=== PATIENT | female | born 1955 | race African-American/Black ===

== ENCOUNTER 2018-04-17 01:23 | Emergency (ER) | payer SELFPAY ==
[2018-04-17] MEDS ORDERED: NORMAL SALINE 1000 ML 1,000 ML IV ONE (02:05)
[2018-04-17] MEDS ORDERED: ONDANSETRON HCL INJ/PF 4 MG/2 ML SDV IV ONE (02:05)
[2018-04-17] MEDS ORDERED: KETOROLAC TROMETHAMINE INJ/PF 30 MG/1 ML SDV IV ONE (02:05)
[2018-04-17] MEDS ORDERED: MORPHINE SULFATE 10 MG/ML INJ IV ONE (02:30)
[2018-04-17 02:38] LABS: ABSOLUTE EOSINOPHILS # (AUTO) 0.1 10^3/uL (0.0-0.6); ABSOLUTE LYMPHOCYTES (AUTO) 1.9 10^3/uL (0.5-4.7); ABSOLUTE MONOCYTES (AUTO) 0.4 10^3/uL (0.1-1.4); BASOPHILS % (AUTO) 0.5 % (0-2); EOSINOPHILS % (AUTO) 0.9 % (0-6); HEMATOCRIT 36.9 % (36.0-47.0); HEMOGLOBIN 12.6 g/dL (12.0-15.5); MEAN CORPUSCULAR HEMOGLOBIN 31.5 pg (27.0-33.4); MEAN CORPUSCULAR HGB CONC 34.2 g/dL (32.0-36.0); MEAN CORPUSCULAR VOLUME 92 fl (80-97); MONOCYTES % (AUTO) 4.7 % (3-13); PLATELET COUNT 242 10^3/uL (150-450); RED CELL DISTRIBUTION WIDTH 12.6 % (11.5-14.0); SEGMENTED NEUTROPHILS % (AUTO) 70.9 % (42-78); TOTAL CELLS COUNTED % (AUTO) 100 %; WHITE BLOOD COUNT 8.4 10^3/uL (4.0-10.5)
[2018-04-17 02:52] LABS: APPEARANCE,URINE CLEAR; BILIRUBIN,URINE NEGATIVE (NEGATIVE); COLOR,URINE STRAW; GLUCOSE, URINE NEGATIVE (NEGATIVE); KETONES,URINE NEGATIVE (NEGATIVE); LEUKOCYTE ESTERASE,URINE TRACE (NEGATIVE); NITRITE,URINE NEGATIVE (NEGATIVE); PROTEIN,URINE NEGATIVE (NEGATIVE); URINE SPECIFIC GRAVITY 1.009; UROBILINOGEN,URINE NEGATIVE mg/dL (<2.0)
[2018-04-17 02:56] LABS: ALANINE AMINOTRANSFERASE 31 U/L (9-52); ALBUMIN 3.9 g/dL (3.5-5.0); ALKALINE PHOSPHATASE 114 U/L (38-126); ANION GAP 8 (5-19); ASPARTATE AMINO TRANSFERASE 25 U/L (14-36); BILIRUBIN,DIRECT 0.2 mg/dL (0.0-0.4); BILIRUBIN,TOTAL 0.4 mg/dL (0.2-1.3); BLOOD UREA NITROGEN 16 mg/dL (7-20); CALCIUM 9.1 mg/dL (8.4-10.2); CARBON DIOXIDE 27 mmol/L (22-30); CHLORIDE 105 mmol/L (98-107); GLUCOSE 122 mg/dL (75-110); LIPASE 255.4 U/L (23-300); POTASSIUM 4.4 mmol/L (3.6-5.0); SODIUM 140.4 mmol/L (137-145); TOTAL PROTEIN 7.3 g/dL (6.3-8.2)
--- NOTE | 2018-04-17 04:16 | RADIOLOGY REPORT (SQ) ---
EXAM DESCRIPTION: CT ABDOMEN WITHOUT IV CONTRAST COMPLETED DATE/TME: 04/17/2018 02:58 CLINICAL HISTORY: 62 years Female, Left flank pain, hematuria Comparison: None. Technique: No contrast. Coronal and sagittal reformat. This exam was performed according to our departmental dose-optimization program, which includes automated exposure control, adjustment of the mA and/or kV according to patient size and/or use of iterative reconstruction technique.[facility]: Dose Right [facility]: CareDose [facility]: Dose Right [facility]: Teradose 4D [facility]: Ongo LIMITATIONS: None Findings: 0.3 cm left distal ureteral stone or phlebolith at the level of the acetabulum; no significant hydronephrosis or hydroureter. Cholecystectomy. Normal appendix. Indeterminate low-attenuation component of the left interpolar kidney may indicate a benign renal cyst; cannot exclude other neoplasm. Recommend multiphase contrast CT or MRI of the kidneys. L4-L5 vacuum disc desiccation. No ascites. No pneumoperitoneum. No bowel obstruction. Unenhanced lower thorax, abdominopelvic structures, and musculoskeleton appear otherwise grossly unremarkable. Impression: 1. Indeterminate low-attenuation component of the left interpolar kidney may indicate a benign renal cyst; cannot exclude other neoplasm. Recommend multiphase contrast CT or MRI of the kidneys. 2. Possible 0.3 cm left distal ureteral stone; no significant obstruction.
--- NOTE | 2018-04-17 05:14 | ER Document Report ---
ED General - General Chief Complaint: Flank Pain Stated Complaint: BACK PAIN Time Seen by Provider: 04/17/18 01:51 Mode of Arrival: Ambulatory Information source: Patient Notes: Patient is a 62-year-old female who presents with chief complaint of left flank pain. Patient reports this started just a few hours prior to arrival and had a sudden onset while she was trying to sleep. Patient reports the pain radiates from her left flank down into the left side of her pelvis/groin. Patient reports history of kidney stones states this feels similar. Patient reports mild nausea but denies any vomiting, diarrhea or fever. Patient unsure if she has blood in her urine. TRAVEL OUTSIDE OF THE [place] IN LAST 30 DAYS: No - Related Data Allergies/Adverse Reactions: No Known Allergies Allergy (Unverified 04/17/18 01:26) Past Medical History - General Information source: Patient - Social History Smoking Status: Never Smoker Chew tobacco use (# tins/day): No Frequency of alcohol use: None Drug Abuse: None Family History: Reviewed & Not Pertinent Patient has suicidal ideation: No Patient has homicidal ideation: No Renal/ Medical History: Denies: Hx Peritoneal Dialysis Physical Exam - Vital signs Vitals: Temp Pulse Resp BP Pulse Ox 97.9 F 70 22 H 158/63 H 100 04/17/18 01:28 04/17/18 01:28 04/17/18 01:28 04/17/18 01:28 04/17/18 01:28 Course - Re-evaluation Re-evalutation: CAT scan reveals possible 0.3 cm nonobstructing renal stone at the distal UVJ. No hydronephrosis or hydroureter is noted. Patient also has a left renal cyst, likely benign but cannot exclude neoplasm. This was discussed with the patient. Blood work is normal without leukocytosis or electrolyte derangements. Patient does have large blood in her urine but otherwise her urine is not infected. Patient was given IV fluids, antiemetics and analgesics and patient is reporting that she feels better. Patient did drive here so we will hold her for several hours while the pain medication has a chance to wear off out of her system. - Vital Signs Vital signs: Temp Pulse Resp BP Pulse Ox 97.7 F 62 14 146/59 H 96 04/17/18 04:40 04/17/18 04:40 04/17/18 04:40 04/17/18 04:40 04/17/18 04:40 - Laboratory Result Diagrams: 04/17/18 02:31 04/17/18 02:31 Laboratory results interpreted by me: 04/17/18 04/17/18 02:31 02:31 Glucose 122 H Urine Blood LARGE H Ur Leukocyte Esterase TRACE H Discharge - Discharge Clinical Impression: Renal cyst, Kidney stone on left side Condition: Stable Disposition: HOME, SELF-CARE Additional Instructions: KIDNEY STONE: You are passing or have passed a kidney stone. These stones are usually due to increased calcium or uric acid concentrations in your urine. Stones within the kidney itself are not painful. The pain occurs as the stone leaves the kidney to pass down the long tube, called the ureter, leading to the bladder. If the stone is small, it will usually pass by itself. Most patients can pass the stone at home. You will usually receive medications for pain, nausea or vomiting, and sometimes a medication to assist in passing the kidney stone. However, if the pain is very severe or if vomiting prevents you from taking oral pain medications, you may need to return for further treatment. Drink three or four quarts of fluids per day. You will be given pain medication (if needed) and urine strainers. Strain all your urine to see if the stone passes. If your doctor has asked you to bring the stone in for analysis, return with the stone once it has passed. Return if pain or vomiting become severe, if you develop a high fever, if you are unable to pass your urine, or if other unusual symptoms occur. TORADOL INJECTION: You have been given an injection of ketorolac tromethamine (Toradol). This is an excellent, safe drug for pain control. It also has potent antiinflammatory action. You should have significant pain relief within about one hour. Toradol is not addicting and is non-sedating. It does not interfere with driving or work. Call or return if you develop itching, hives, shortness of breath, or rash. PAIN MEDICATION INJECTION: You have received an injection of a pain medication. You should experience significant pain relief within 45 minutes. This drug is a narcotic - - it will impair your judgement, slow your reaction time and make you sleepy ( as well as relieve your pain). Narcotics also can cause nausea. You should not drive, work with machinery, or perform any task requiring mental alertness until all effects of the medication are gone -- six to eight hours. Do not take any alcohol, or sedatives, and do not take any other medication without checking with your physician. ANTINAUSEA MEDICATION: You have been given a medication to suppress nausea and vomiting. This type of medication can be given as a shot, pill, or suppository. It will usually last for many hours. Pills and shots usually last six to eight hours, suppositories last about 12 hours. For the typical illness, only one or two doses of the medication may be necessary. Mild lightheadedness may occur. This type of medicine can cause drowsiness. Do not drive or operate dangerous machinery while under its influence. Do not mix with alcohol. See your doctor at once if you have muscle spasms or tightness, or uncontrollable motions (particularly of the neck, mouth, or jaw). Persistent vomiting or severe lightheadedness should also be evaluated by the physician. ORAL NARCOTIC MEDICATION: You have been given a prescription for pain control. This medication is a narcotic. It's best taken with food, as nausea can result if taken on an empty stomach. Don't operate machinery or drive within six hours of taking this medication. Do not combine this medicine with alcohol, or with any medication which can cause sedation (such as cold tablets or sleeping pills) unless you get permission from the physician. Narcotics tend to cause constipation. If possible, drink plenty of fluids and eat a diet high in fiber and fruits. Please be aware that prescription narcotics also have the potential for abuse. People become addicted to these medications because of the general sense of wellbeing that they induce. This feeling along with a significant reduction in tension, anxiety, and aggression provides a stimulating seductive quality to these drugs. Once your pain is under control, we encourage you to discard your unused narcotics. FOLLOW-UP CARE: If you have been referred to a physician for follow-up care, call the physician s office for an appointment as you were instructed or within the next two days. If you experience worsening or a significant change in your symptoms, notify the physician immediately or return to the Emergency Department at any time for re-evaluation. Please take ibuprofen 600 mg every 6 hours for pain for the next 1-2 days. Please use the narcotic pain medication that I am providing to only as needed for severe or breakthrough pain. Take the nausea medication as needed. Follow- up with a urologist regarding your kidney stones. As discussed there is some type of a nodule on your kidney, I gave you a copy of the CT report today cancer cannot be excluded from the possible diagnoses. It is very important that you follow-up with this with your primary care provider as they may order further imaging. Prescriptions: Hydrocodone/Acetaminophen [Hydrocodon-Acetaminophen 5-325] 1 each PO Q4H #12 tablet Ondansetron [Zofran Odt 4 mg Tablet] 1 - 2 tab PO Q4H PRN #15 tab.rapdis PRN Reason: For Nausea/Vomiting Forms: Return to Work
[2018-04-17] MEDS ORDERED: ONDANSETRON ODT 4 MG TAB (6 TAB/ER DISP) PO PRN (05:53)
[2018-04-17] MEDS ORDERED: HYDROCODONE/ACETAMINOPHEN 5-325 MG (6 TAB/ER DISP) PO PRN (05:53)
[2018-04-17 07:01] VITALS: BP 128/57
== END 2018-04-17 06:58 | disposition home or self-care (01) ==
LOC: ER 01:23
DX: N20.0 Calculus of kidney (principal); Q61.01 Congenital single renal cyst; R11.0 Nausea
CPT/HCPCS: 99284; 96361; 96374; 96375; 36415; 83690; 85025; 80053; 81001; 76380; J1885; J2270; J2405

== ENCOUNTER 2018-04-17 16:47 | Emergency (ER) | payer SELFPAY ==
--- NOTE | 2018-04-17 17:32 | ER Document Report ---
ED Medical Screen (RME) - General Chief Complaint: Possible Kidney Stone Stated Complaint: BACK PAIN Time Seen by Provider: 04/17/18 17:29 Mode of Arrival: Ambulatory Information source: Patient Notes: This is a 62-year-old female that resents with persistent left flank pain. Patient states she was evaluated last night given some IV fluids and had a CT scan. CT scan suggestive of a 3 mm left ureter stone. Patient is in the left flank and radiates to the groin. She does have a history of a kidney stone remotely in the past. Patient states she came in because of medicines not helping. TRAVEL OUTSIDE OF THE [place] IN LAST 30 DAYS: No - Related Data Allergies/Adverse Reactions: No Known Allergies Allergy (Verified 04/17/18 16:49) Past Medical History Renal/ Medical History: Denies: Hx Peritoneal Dialysis Past Surgical History: Reports: Hx Cholecystectomy Physical Exam - Vital signs Vitals: Temp Pulse Resp BP Pulse Ox 97.6 F 59 L 16 144/50 H 100 04/17/18 16:52 04/17/18 16:52 04/17/18 16:52 04/17/18 16:52 04/17/18 16:52 Course - Vital Signs Vital signs: Temp Pulse Resp BP Pulse Ox 97.6 F 59 L 16 144/50 H 100 04/17/18 16:52 04/17/18 16:52 04/17/18 16:52 04/17/18 16:52 04/17/18 16:52
--- NOTE | 2018-04-17 18:23 | ER Document Report ---
HPI - HPI Patient complains to provider of: Flank pain Onset: Yesterday Onset/Duration: Better Quality of pain: Achy Pain Level: 1 Context: Patient presents complaining of left flank pain that radiates to left lower quadrant of abdomen. Patient was seen yesterday treated for a kidney stone and a renal cyst. Patient has not gotten her medications filled. Patient has only taken one pain pill at home that did not relieve her pain symptoms which prompted her to come back in. Patient's bottle does state that she can take 1 or 2 pain tablets as needed every 4 hours for pain relief. Patient complains of nausea but denies any vomiting or diarrhea. Patient denies any urinary symptoms. Patient states that prior to arrival her pain was much more severe but it has seemed to have eased off at this time. Associated Symptoms: Nausea, Other - Left flank pain. denies: Fever, Vomiting Exacerbated by: Denies Relieved by: Denies Similar symptoms previously: Yes Recently seen / treated by doctor: Yes - ROS ROS below otherwise negative: Yes Systems Reviewed and Negative: Yes All other systems reviewed and negative - CONSTITUTIONAL Constitutional: DENIES: Fever, Chills - NEURO Neurology: DENIES: Weakness - GASTROINTESTINAL Gastrointestinal: REPORTS: Abdominal Pain, Nausea. DENIES: Patient vomiting - URINARY Urinary: DENIES: Dysuria - MUSCULOSKELETAL Musculoskeletal: REPORTS: Back Pain - DERM Skin Color: Normal Skin Problems: None Past Medical History - General Information source: Patient - Social History Smoking Status: Never Smoker Frequency of alcohol use: None Drug Abuse: None Family History: Reviewed & Not Pertinent Patient has suicidal ideation: No Patient has homicidal ideation: No Renal/ Medical History: Denies: Hx Peritoneal Dialysis GI Medical History: Reports: Hx Gastroesophageal Reflux Disease Past Surgical History: Reports: Hx Cholecystectomy Vertical Provider Document - CONSTITUTIONAL Agree With Documented VS: Yes Exam Limitations: No Limitations General Appearance: WD/WN, No Apparent Distress - INFECTION CONTROL TRAVEL OUTSIDE OF THE [place] IN LAST 30 DAYS: No - HEENT HEENT: Atraumatic, Normocephalic - NECK Neck: Normal Inspection, Supple - RESPIRATORY Respiratory: Breath Sounds Normal, No Respiratory Distress - CARDIOVASCULAR Cardiovascular: Regular Rate, Regular Rhythm - GI/ABDOMEN Gastrointestinal: Abdomen Soft, Abdomen Non-Tender, No Organomegaly - BACK Back: CVA Tenderness-Left - MUSCULOSKELETAL/EXTREMETIES Musculoskeletal/Extremeties: MIGUELANGEL SNOWDEN - NEURO Level of Consciousness: Awake, Alert, Appropriate Motor/Sensory: No Motor Deficit - DERM Integumentary: Warm, Dry, No Rash Course - Re-evaluation Re-evalutation: 04/17/18 19:16 Patient presently pain free at this time. Patient states that she did not get the prescription for the pain medication filled because the one pain pill that she took did not seem to be managing her pain symptoms. Patient advised that the prescription was written she can have 1 or 2 tablets for pain relief. Patient without any leukocytosis or impaired renal function. No concern for UTI at this time. Patient encouraged to follow-up with urologist for further evaluation. - Vital Signs Vital signs: Temp Pulse Resp BP Pulse Ox 97.6 F 59 L 16 144/50 H 100 04/17/18 16:52 04/17/18 16:52 04/17/18 16:52 04/17/18 16:52 04/17/18 16:52 - Laboratory Result Diagrams: 04/17/18 18:35 04/17/18 18:35 Laboratory results interpreted by me: 04/17/18 19:16 Labs- Entire Visit 04/17/18 04/17/18 04/17/18 18:25 18:35 18:35 WBC 9.6 RBC 3.98 Hgb 12.2 Hct 36.9 MCV 93 MCH 30.6 MCHC 33.0 RDW 12.9 Plt Count 241 Seg Neutrophils % 77.4 Lymphocytes % 15.0 Monocytes % 7.0 Eosinophils % 0.3 Basophils % 0.3 Absolute Neutrophils 7.4 Absolute Lymphocytes 1.4 Absolute Monocytes 0.7 Absolute Eosinophils 0.0 Absolute Basophils 0.0 Sodium 141.6 Potassium 4.7 Chloride 107 Carbon Dioxide 26 Anion Gap 9 BUN 12 Creatinine 0.72 Est GFR ( Amer) > 60 Est GFR (Non-Af Amer) > 60 Glucose 111 H Calcium 8.9 Urine Color STRAW Urine Appearance CLOUDY Urine pH 5.0 Ur Specific [place] 1.005 Urine Protein NEGATIVE Urine Glucose (UA) NEGATIVE Urine Ketones NEGATIVE Urine Blood LARGE H Urine Nitrite NEGATIVE Urine Bilirubin NEGATIVE Urine Urobilinogen NEGATIVE Ur Leukocyte Esterase TRACE H Urine WBC (Auto) 3 Urine RBC (Auto) 24 Urine Bacteria (Auto) TRACE Squamous Epi Cells Auto 1 Urine Mucus (Auto) OCC Urine Ascorbic Acid NEGATIVE 04/17/18 19:16 Reviewed labs from previous ER visit - Diagnostic Test Radiology reviewed: Reports reviewed - From previous ER visit Discharge - Discharge Clinical Impression: Renal cyst, Kidney stone on left side, Flank pain Condition: Stable Disposition: HOME, SELF-CARE Instructions: Flank Pain ([facility]), Growth or Mass, Pending Workup ([facility]), Kidney Stone ([facility]) Additional Instructions: Return immediately for any new or worsening symptoms Followup with your primary care provider, call tomorrow to make a followup appointment Follow-up with urology for further evaluation, call Wednesday for an appointment Get your medications filled and take as prescribed Referrals: [facility] [Provider Group] - Follow up tomorrow [facility] [Provider Group] - Follow up tomorrow
[2018-04-17 18:45] LABS: APPEARANCE,URINE CLOUDY; BILIRUBIN,URINE NEGATIVE (NEGATIVE); COLOR,URINE STRAW; GLUCOSE, URINE NEGATIVE (NEGATIVE); KETONES,URINE NEGATIVE (NEGATIVE); LEUKOCYTE ESTERASE,URINE TRACE (NEGATIVE); NITRITE,URINE NEGATIVE (NEGATIVE); PROTEIN,URINE NEGATIVE (NEGATIVE); URINE SPECIFIC GRAVITY 1.005; UROBILINOGEN,URINE NEGATIVE mg/dL (<2.0)
[2018-04-17 18:48] LABS: ABSOLUTE LYMPHOCYTES (AUTO) 1.4 10^3/uL (0.5-4.7); ABSOLUTE MONOCYTES (AUTO) 0.7 10^3/uL (0.1-1.4); ABSOLUTE NEUT (AUTO) 7.4 10^3/uL (1.7-8.2); BASOPHILS % (AUTO) 0.3 % (0-2); EOSINOPHILS % (AUTO) 0.3 % (0-6); HEMATOCRIT 36.9 % (36.0-47.0); HEMOGLOBIN 12.2 g/dL (12.0-15.5); MEAN CORPUSCULAR HEMOGLOBIN 30.6 pg (27.0-33.4); MEAN CORPUSCULAR VOLUME 93 fl (80-97); PLATELET COUNT 241 10^3/uL (150-450); RED BLOOD COUNT 3.98 10^6/uL (3.72-5.28); RED CELL DISTRIBUTION WIDTH 12.9 % (11.5-14.0); SEGMENTED NEUTROPHILS % (AUTO) 77.4 % (42-78); TOTAL CELLS COUNTED % (AUTO) 100 %; WHITE BLOOD COUNT 9.6 10^3/uL (4.0-10.5)
[2018-04-17 19:12] LABS: ANION GAP 9 (5-19); BLOOD UREA NITROGEN 12 mg/dL (7-20); CALCIUM 8.9 mg/dL (8.4-10.2); CARBON DIOXIDE 26 mmol/L (22-30); CHLORIDE 107 mmol/L (98-107); GLUCOSE 111 mg/dL (75-110); POTASSIUM 4.7 mmol/L (3.6-5.0); SODIUM 141.6 mmol/L (137-145)
[2018-04-17 19:36] VITALS: BP 126/53
== END 2018-04-17 19:33 | disposition home or self-care (01) ==
LOC: ER 16:47
DX: N20.0 Calculus of kidney (principal); Q61.01 Congenital single renal cyst; R10.9 Unspecified abdominal pain; T39.96XA Underdosing of unspecified nonopioid analgesic, antipyretic and antirheumatic, initial encounter; Z91.128 Patient's intentional underdosing of medication regimen for other reason; Z91.14 Patient's other noncompliance with medication regimen; R11.0 Nausea
CPT/HCPCS: 36415; 80048; 81001; 85025; 87086; 99284

== ENCOUNTER 2018-09-21 06:13 | Emergency (ER) | payer MEDICARE ==
[2018-09-21] MEDS ORDERED: NORMAL SALINE 1000 ML 1,000 ML IV ONE (07:16)
--- NOTE | 2018-09-21 07:19 | ER Document Report ---
ED Dizziness/Weakness - General Chief Complaint: Dizziness Stated Complaint: DIZZINESS Time Seen by Provider: 09/21/18 06:56 Notes: 63-year-old female comes into the emergency department with complaints of dizziness and weakness. Patient stated for the last 2 weeks she has been is been feeling poorly. She had a lot of nasal congestion. She is been nauseous. She is been dizzy states the room was not spinning around her. It comes and goe s she has a sensation of lightheadedness facial pressure congested. She just moved from [place]. She states she has occasional nausea but denies vomiting denies chest pain denies shortness of breath. Denies extremity numbness tingling or weakness. Denies blurred vision. TRAVEL OUTSIDE OF THE [place] IN LAST 30 DAYS: No - Related Data Allergies/Adverse Reactions: No Known Allergies Allergy (Verified 04/17/18 16:49) Past Medical History - Social History Smoking Status: Unknown if Ever Smoked Family History: Reviewed & Not Pertinent Renal/ Medical History: Denies: Hx Peritoneal Dialysis GI Medical History: Reports: Hx Gastroesophageal Reflux Disease Past Surgical History: Reports: Hx Cholecystectomy Review of Systems - Review of Systems Constitutional: Weakness. denies: Chills, Fever EENT: Nose congestion Cardiovascular: Dizziness, Lightheaded. denies: Chest pain, Heart racing, Edema Respiratory: denies: Cough, Hurts to breathe, Hemoptysis, Short of breath Gastrointestinal: Nausea. denies: Abdominal pain, Diarrhea, Vomiting Musculoskeletal: denies: Back pain Neurological/Psychological: Headaches. denies: Speech impairment, Numbness, Tingling -: Yes All other systems reviewed and negative Physical Exam - Vital signs Vitals: Temp Pulse Resp BP Pulse Ox 97.9 F 64 16 165/59 H 100 09/21/18 06:22 09/21/18 06:22 09/21/18 06:22 09/21/18 06:22 09/21/18 06:22 - Notes Notes: GENERAL_APPEARANCE: well_nourished, alert, cooperative, no_acute_distress, no_obvious_discomfort. VITALS: reviewed, see vital signs table. HEAD: no_swelling\tenderness on the head. EYES: PERRL, EOMI, conjunctiva_clear. NOSE: Clear_nasal_discharge. Moderate bilateral turbinate inflammation MOUTH: (-)decreased moisture. THROAT: no_tonsilar_inflammation, no_airway_obstruction. no_lymphadenopathy NECK: supple, no_neck_tenderness, (-)thyromegaly. BACK: no_back_tenderness. CHEST_WALL: no_chest_tenderness. LUNGS: no_wheezing, no_rales, no_rhonchi, (-)accessory muscle use, good air exchange bilateral. HEART: normal_rate, normal_rhythm, normal_S1, normal_S2, (-)S3, (-)S4, no_murmu r, no_rub. ABDOMEN: normal_BS, soft, no_abd_tenderness, (-)guarding, (-)rebound, no_organomegaly, no_abd_masses. EXTREMITIES: good pulses in all_extremities, no_swelling\tenderness in the extremities, no_edema. SKIN: warm, dry, good_color, no_rash. MENTAL_STATUS: speech_clear, oriented_X_3, normal_affect, responds_appropriately to questions. NEURO: Neg Motor or Sensory Deficits on exam, CN 2-12 intact, DTR 2+ symmetric x 4, No cerbellar signs Course - Re-evaluation Re-evalutation: 09/21/18 07:18 63-year-old female comes in complaining of dizziness nausea generalized weakness for the last 2 weeks. Patient complains of lightheadedness dizziness no vertigo. Denies any room spinning or disequilibrium. The patient denies any extremity numbness tingling weakness nothing to suggest stroke however we will get a CT scan to assess for any FLUID POWER MECHANIC lesion or mass space-occupying lesion. We will check an EKG chest x-ray troponin to be sure that this is not some strange anginal equivalent. The patient just states she feels weak all over and has a very nonspecific complaint she is recently moved from [place]. She may be allergic to these early spring tree pollens. This is causing her nasal congestion. 09/21/18 10:36 Work appears very reassuring. Patient was started on antihistamine for her nasal congestion. I do not see anything that would suggest unilateral focal deficits or stroke. I spoke with the patient about establishing primary care and if any additional problems she should return to the ER for evaluation. - Vital Signs Vital signs: Temp Pulse Resp BP Pulse Ox 97.9 F 67 16 153/67 H 100 09/21/18 06:22 09/21/18 08:36 09/21/18 09:01 09/21/18 09:01 09/21/18 09:01 - Laboratory Result Diagrams: 09/21/18 07:45 09/21/18 07:45 Laboratory results interpreted by me: 09/21/18 09/21/18 07:45 08:39 Glucose 117 H Urine Blood SMALL H Ur Leukocyte Esterase TRACE H - Diagnostic Test Radiology reviewed: Reports reviewed Radiology results interpreted by me: 09/21/18 10:36 Chest X-Ray 09/21/18 07:16 IMPRESSION: No evidence of acute intrathoracic disease. Head CT 09/21/18 07:16 IMPRESSION: NORMAL BRAIN CT WITHOUT CONTRAST. EVIDENCE OF ACUTE STROKE: NO. Discharge - Discharge Clinical Impression: Dizziness Condition: Good Disposition: HOME, SELF-CARE Instructions: Dizziness ([facility]) Prescriptions: Loratadine [Claritin] 10 mg PO DAILY #30 tablet
--- NOTE | 2018-09-21 07:42 | RADIOLOGY REPORT (SQ) ---
EXAM DESCRIPTION: X-ray single view chest. CLINICAL HISTORY: 63 years Female, dizziness COMPARISON: None. TECHNIQUE: Single portable view of the chest performed on 09/21/2018 at 7:27 AM FINDINGS: The lungs are well expanded and are clear. There is no evidence of a pneumothorax. The cardiac silhouette is normal in size and configuration. The mediastinal contours are normal. No acute osseous abnormality is identified. No focal soft tissue abnormalities are seen. Lines and tubes: None. IMPRESSION: No evidence of acute intrathoracic disease.
[2018-09-21 08:01] LABS: ABSOLUTE EOSINOPHILS # (AUTO) 0.1 10^3/uL (0.0-0.6); ABSOLUTE LYMPHOCYTES (AUTO) 1.6 10^3/uL (0.5-4.7); ABSOLUTE MONOCYTES (AUTO) 0.3 10^3/uL (0.1-1.4); ABSOLUTE NEUT (AUTO) 4.2 10^3/uL (1.7-8.2); BASOPHILS % (AUTO) 0.5 % (0-2); EOSINOPHILS % (AUTO) 0.8 % (0-6); HEMATOCRIT 37.5 % (36.0-47.0); HEMOGLOBIN 12.7 g/dL (12.0-15.5); LYMPHOCYTES % (AUTO) 25.3 % (13-45); MEAN CORPUSCULAR HEMOGLOBIN 31.6 pg (27.0-33.4); MEAN CORPUSCULAR HGB CONC 33.8 g/dL (32.0-36.0); MEAN CORPUSCULAR VOLUME 93 fl (80-97); MONOCYTES % (AUTO) 5.3 % (3-13); PLATELET COUNT 266 10^3/uL (150-450); RED BLOOD COUNT 4.01 10^6/uL (3.72-5.28); RED CELL DISTRIBUTION WIDTH 12.5 % (11.5-14.0); SEGMENTED NEUTROPHILS % (AUTO) 68.1 % (42-78); TOTAL CELLS COUNTED % (AUTO) 100 %; WHITE BLOOD COUNT 6.2 10^3/uL (4.0-10.5)
[2018-09-21 08:18] LABS: ANION GAP 5 (5-19); BLOOD UREA NITROGEN 16 mg/dL (7-20); CALCIUM 9.2 mg/dL (8.4-10.2); CARBON DIOXIDE 30 mmol/L (22-30); CHLORIDE 107 mmol/L (98-107); GLUCOSE 117 mg/dL (75-110); POTASSIUM 4.4 mmol/L (3.6-5.0); SODIUM 141.6 mmol/L (137-145)
--- NOTE | 2018-09-21 08:35 | RADIOLOGY REPORT (SQ) ---
EXAM DESCRIPTION: CT HEAD WITHOUT COMPLETED DATE/TIME: 09/21/2018 8:25 am REASON FOR STUDY: dizziness COMPARISON: None. TECHNIQUE: Axial images acquired through the brain without intravenous contrast. Images reviewed wi th bone, brain and subdural windows. Additional sagittal and coronal reconstructions were generated. Images stored on PACS. All CT scanners at this facility use dose modulation, iterative reconstruction, and/or weight based d osing when appropriate to reduce radiation dose to as low as reasonably achievable (ALARA). [facility]: Dose Right [facility]: CareDose [facility]: Dose Right [facility]: Teradose 4D [facility]: [place] RADIATION DOSE: CT Rad equipment meets quality standard of care and radiation dose reduction techniq ues were employed. CTDIvol: 53.2 mGy. DLP: 964 mGy-cm. mGy. LIMITATIONS: None. FINDINGS: VENTRICLES: Normal size and contour. CEREBRUM: No masses. No hemorrhage. No midline shift. No evidence for acute infarction. Normal gra y/white matter differentiation. No areas of low density in the white matter. CEREBELLUM: No masses. No hemorrhage. No alteration of density. No evidence for acute infarction. EXTRAAXIAL SPACES: No fluid collections. No masses. ORBITS AND GLOBE: No intra- or extraconal masses. Normal contour of globe without masses. CALVARIUM: No fracture. PARANASAL SINUSES: No fluid or mucosal thickening. SOFT TISSUES: No mass or hematoma. OTHER: No other significant finding. IMPRESSION: NORMAL BRAIN CT WITHOUT CONTRAST. EVIDENCE OF ACUTE STROKE: NO. COMMENT: Quality ID # [id number]: Final reports with documentation of one or more dose reduction techniques (e.g., Automated exposure control, adjustment of the mA and/or kV according to patient size, use of iterative reconstruction technique) TECHNICAL DOCUMENTATION: JOB ID: [id number] [employer]- All Rights Reserved Reading location - IP/workstation name: [email or web address]
[2018-09-21] MEDS ORDERED: ONDANSETRON HCL INJ/PF 4 MG/2 ML SDV IV ONE (08:44)
[2018-09-21 08:53] LABS: APPEARANCE,URINE CLEAR; BILIRUBIN,URINE NEGATIVE (NEGATIVE); COLOR,URINE STRAW; GLUCOSE, URINE NEGATIVE (NEGATIVE); KETONES,URINE NEGATIVE (NEGATIVE); LEUKOCYTE ESTERASE,URINE TRACE (NEGATIVE); NITRITE,URINE NEGATIVE (NEGATIVE); PROTEIN,URINE NEGATIVE (NEGATIVE); URINE SPECIFIC GRAVITY 1.009; UROBILINOGEN,URINE NEGATIVE mg/dL (<2.0)
[2018-09-21 11:05] VITALS: BP 152/67
--- NOTE | 2018-09-21 19:16 | EKG REPORT ---
SEVERITY:- NORMAL ECG - SINUS RHYTHM : Confirmed by: Larisa Jimenes MD 21-Sep-2018 19:14:51
== END 2018-09-21 11:06 | disposition home or self-care (01) ==
LOC: ER 06:13
DX: R42 Dizziness and giddiness (principal); R09.81 Nasal congestion; R53.1 Weakness; R11.0 Nausea; R51 Headache; J34.89 Other specified disorders of nose and nasal sinuses
CPT/HCPCS: 93005; 99284; 96361; 96374; 36415; 85025; 80048; 81001; 84484; 71045; 70450; 93010; J2405; J7030

== ENCOUNTER 2018-11-19 07:04 | Emergency (ER) | payer MEDICARE ==
[2018-11-19 08:33] LABS: APPEARANCE,URINE CLEAR; BILIRUBIN,URINE NEGATIVE (NEGATIVE); COLOR,URINE YELLOW; GLUCOSE, URINE NEGATIVE (NEGATIVE); KETONES,URINE NEGATIVE (NEGATIVE); LEUKOCYTE ESTERASE,URINE SMALL (NEGATIVE); NITRITE,URINE NEGATIVE (NEGATIVE); PROTEIN,URINE NEGATIVE (NEGATIVE); URINE SPECIFIC GRAVITY 1.023; UROBILINOGEN,URINE NEGATIVE mg/dL (<2.0)
--- NOTE | 2018-11-19 08:47 | ER Document Report ---
ED General - General Chief Complaint: Vaginal Discharge Stated Complaint: URINARY ISSUES Time Seen by Provider: 11/19/18 08:24 Notes: 63-year-old female with no past medical history presents to the emergency department for vaginal itching x1 week. She went to urgent care and then followed up with her primary care doctor who did a urinalysis and prescribe her something that she does not know but was unable to pick it up. She states that she has had some brownish discharge and some lower back pain. She is not sexually active. She denies any urinary symptoms. She denies fever, chills, shortness of breath or chest pain, nausea, vomiting, diarrhea. No other complaints TRAVEL OUTSIDE OF THE [place] IN LAST 30 DAYS: No - Related Data Allergies/Adverse Reactions: No Known Allergies Allergy (Verified 04/17/18 16:49) Past Medical History - Social History Smoking Status: Unknown if Ever Smoked Family History: Reviewed & Not Pertinent Patient has suicidal ideation: No Patient has homicidal ideation: No Renal/ Medical History: Denies: Hx Peritoneal Dialysis GI Medical History: Reports: Hx Gastroesophageal Reflux Disease Past Surgical History: Reports: Hx Cholecystectomy Review of Systems - Review of Systems Constitutional: See HPI EENT: No symptoms reported Cardiovascular: See HPI Respiratory: See HPI Gastrointestinal: See HPI Genitourinary: See HPI Female Genitourinary: See HPI Musculoskeletal: No symptoms reported Skin: No symptoms reported Hematologic/Lymphatic: No symptoms reported Neurological/Psychological: No symptoms reported Physical Exam - Vital signs Vitals: Temp Pulse Resp BP Pulse Ox 98.0 F 69 16 142/60 H 98 11/19/18 07:08 11/19/18 07:08 11/19/18 07:08 11/19/18 07:08 11/19/18 07:08 - Notes Notes: PHYSICAL EXAMINATION: Reviewed vital signs and charting by RN GENERAL: Alert, interacts well. No acute distress. HEAD: Normocephalic, atraumatic. EYES: Pupils equal and round. Extraocular movements intact. ENT: Oral mucosa moist, tongue midline. NECK: Full range of motion. Supple. Trachea midline. LUNGS: Clear to auscultation bilaterally, no wheezes, rales, or rhonchi. No respiratory distress. HEART: Regular rate and rhythm. No murmur ABDOMEN: soft, non-tender. Non-distended. Bowel sounds present. no McBurney's point tenderness, no Marie sign. : Speculum exam performed cervix visualized and nonfriable, no cervical motion tenderness, scant brownish-white discharge seen EXTREMITIES: Moves all 4 extremities spontaneously. No edema, No cyanosis. Normal distal neurovascular exam BACK: No CVAT, bilateral lower back pain described as an ache when palpating NEUROLOGIC: Oriented and appropriate. Normal speech. PSYCH: Normal affect, normal mood. SKIN: Warm, dry, normal turgor. No rashes or lesions noted. Course - Re-evaluation Re-evalutation: 11/19/18 08:46 Overall well-appearing and here for concern for a yeast infection. She is having lower back pain so a pelvic exam was performed 11/19/18 10:25 Wet mount shows 3+ WBCs, consistent with bacterial vaginosis. Urinalysis showed moderate blood and small leuk esterase with 3 WBCs. I am not inclined to treat for urinary tract infection as she is having no urinary symptoms. I will treat her with Flagyl for bacterial vaginosis. Patient is afebrile and vital signs are within normal limits. Stable for discharge. 11/19/18 10:27 - Vital Signs Vital signs: Temp Pulse Resp BP Pulse Ox 98.0 F 69 16 142/60 H 98 11/19/18 09:05 11/19/18 07:08 11/19/18 07:08 11/19/18 07:08 11/19/18 07:08 - Laboratory Laboratory results interpreted by me: 11/19/18 07:55 Urine Blood MODERATE H Ur Leukocyte Esterase SMALL H Urine Ascorbic Acid 40 H Discharge - Discharge Clinical Impression: Bacterial vaginosis Disposition: HOME, SELF-CARE Instructions: Vaginosis, Bacterial ([facility]) Additional Instructions: You are being treated for bacterial vaginosis, an overgrowth of normal bacteria in the vagina. You are being sent home on an antibiotic called metronidazole. Take exactly as directed. Never drink alcohol while taking this antibiotic. Please return if you develop abdominal pain, fever greater than 101F, some vomiting, or any other symptoms that are concerning to you.
[2018-11-19 08:52] LABS: T.VAGINALIS (WET MOUNT) NO TRICHOMONAS SEEN; WBCS (WET MOUNT) 3+ WBCS SEEN; YEAST (WET MOUNT) NO YEAST SEEN
[2018-11-19 08:53] LABS: RBCS (WET MOUNT) NO RBCS SEEN
[2018-11-19 10:23] LABS: CHLAM PCR NOT DETECTED (NOT DETECT); GON PCR NOT DETECTED (NOT DETECT)
[2018-11-19] MEDS ORDERED: ONDANSETRON ODT 4 MG TAB (6 TAB/ER DISP) PO PRN (10:27)
[2018-11-19] MEDS ORDERED: METRONIDAZOLE 500 MG TABLET PO ONE (10:27)
[2018-11-19 10:53] VITALS: BP 158/53
== END 2018-11-19 11:08 | disposition home or self-care (01) ==
LOC: ER 07:04
DX: N76.0 Acute vaginitis (principal); B96.89 Other specified bacterial agents as the cause of diseases classified elsewhere; M54.5 Low back pain; R31.9 Hematuria, unspecified
CPT/HCPCS: 99283; 87086; 87210; 87088; 81001; 87491; 87591; A9270 ×2

== ENCOUNTER 2018-12-11 04:00 | Emergency (ER) | payer MEDICARE ==
[2018-12-11] MEDS ORDERED: MAG HYDROX/AL HYDROX/SIMETH SUSP 30 ML UDCUP PO ONE (04:37)
[2018-12-11] MEDS ORDERED: METOCLOPRAMIDE HCL ORAL SOLN 10 MG/10 ML UDCUP PO ONE (04:37)
[2018-12-11] MEDS ORDERED: MECLIZINE HCL 25 MG TABLET PO ONE (04:37)
[2018-12-11] MEDS ORDERED: LIDOCAINE 2% VISCOUS SOLN 20 ML UDCUP PO ONE (04:37)
--- NOTE | 2018-12-11 04:39 | ER Document Report ---
ED General - General Chief Complaint: Sore Throat Stated Complaint: DIZZINESS Time Seen by Provider: 12/11/18 04:37 Primary Care Provider: PJ AGUILERA FNP-C [COMMUNITY BASED STAFF] - Follow up as needed Notes: Patient is a 63-year-old female that comes to the emergency department for chief complaints. First complaint is since yesterday she occasionally gets a spinning sensation, she gets this if she gets up quickly or if she closes her eyes. She denies difficulty walking in a straight line, she states it has made her nauseated a couple of times. She denies vomiting. She denies headache or head injury. She denies fever/chills. Second complaint is about 1 week of intermittent sensation of a burning/tingling in the back of her throat. She states she has had this before with reflux problems in the past. She denies abdominal pain, chest pain, shortness of breath. She also states that she has had the similar spinning sensation in the past and was medicated for it but ran out of the medication. She takes no daily medications, she denies any diagnosed past medical history. TRAVEL OUTSIDE OF THE [place] IN LAST 30 DAYS: No - Related Data Allergies/Adverse Reactions: No Known Allergies Allergy (Verified 04/17/18 16:49) Past Medical History - General Information source: Patient - Social History Smoking Status: Never Smoker Frequency of alcohol use: None Drug Abuse: None Lives with: Family Family History: Reviewed & Not Pertinent Renal/ Medical History: Reports: Hx Kidney Stones. Denies: Hx Peritoneal Dialysis GI Medical History: Reports: Hx Gastroesophageal Reflux Disease Past Surgical History: Reports: Hx Cholecystectomy Review of Systems - Review of Systems Constitutional: No symptoms reported EENT: See HPI Cardiovascular: No symptoms reported Respiratory: No symptoms reported Gastrointestinal: See HPI Genitourinary: No symptoms reported Female Genitourinary: No symptoms reported Musculoskeletal: No symptoms reported Skin: No symptoms reported Hematologic/Lymphatic: No symptoms reported Neurological/Psychological: See HPI Physical Exam - Vital signs Vitals: Temp Pulse Resp BP Pulse Ox 98.1 F 61 20 160/65 H 99 12/11/18 04:05 12/11/18 04:05 12/11/18 04:05 12/11/18 04:05 12/11/18 04:05 - Notes Notes: GENERAL: Alert, interacts well. No acute distress. HEAD: Normocephalic, atraumatic. EYES: Pupils equal, round, and reactive to light. Extraocular movements intact. There is nystagmus, especially towards the right, horizontal only. ENT: Oral mucosa moist, tongue midline. Oropharynx unremarkable. Airway patent. Nares patent, no nasal septal hematoma, TM's intact. NECK: Full range of motion. Supple. Trachea midline. LUNGS: Clear to auscultation bilaterally, no wheezes, rales, or rhonchi. No respiratory distress. HEART: Regular rate and rhythm. No murmur ABDOMEN: Soft, non-tender. Non-distended. Bowel sounds present in all 4 quadrants. GENITOURINARY: Deferred EXTREMITIES: Moves all 4 extremities spontaneously. No edema, normal radial and dorsalis pedis pulses bilaterally. No cyanosis. BACK: no cervical, thoracic, lumbar midline tenderness. No saddle anesthesia, no rmal distal neurovascular exam. NEUROLOGICAL: Alert and oriented x3. Normal speech. Cranial nerves II through XII grossly intact. PSYCH: Normal affect, normal mood. SKIN: Warm, dry, normal turgor. No rashes or lesions noted. Course - Re-evaluation Re-evalutation: Other than mild horizontal nystagmus patient does not have any noted abnormalities on exam. She ambulates across the room without any ataxia or difficulty. Her reported spinning sensation is mild. She has had this before. She is smiling and well-appearing. Her symptoms are most suggestive of vertigo and based on her evaluation including normal cerebellar exam I have a low suspicion of any intracranial abnormality. Patient is also reporting the discomfort sensation in the back of her throat that she believes is from reflux symptoms. She was given a GI cocktail. Her abdomen is completely soft and benign. No chest pain or shortness of breath. CBC, chemistry completely unremarkable. I discussed with patient. On reevaluation she states her dizziness symptoms and her throat irritation are completely resolved after medications. She will be prescribed medications for home, discussed primary care follow-up, discussed return precautions in detail. Patient states satisfaction and agreement. - Vital Signs Vital signs: Temp Pulse Resp BP Pulse Ox 98.1 F 56 L 16 153/72 H 97 12/11/18 06:00 12/11/18 06:00 12/11/18 06:00 12/11/18 06:00 12/11/18 06:00 - Laboratory Result Diagrams: 12/11/18 04:10 12/11/18 04:10 Discharge - Discharge Clinical Impression: Dizziness, Vertigo, Throat symptom Condition: Stable Disposition: HOME, SELF-CARE Additional Instructions: Your evaluation and work-up is reassuring. Your symptoms are most likely secondary to labyrinthitis take meclizine as prescribed for the next several days, see additional instructions on this below. Your symptoms are also suggestive of esophageal inflammation/reflux, I recommend that you take the Carafate and famotidine as directed as well. Follow-up with primary care for recheck of your blood pressure and for additional management/treatment. Return if you worsen including vomiting, headache, weakness on one side of your body, inability to walk, blood in the vomit, abdominal pain, black stools, or any other concerning symptoms. Labyrinthitis Labyrinthitis is a temporary disease of the inner ear. It's sometimes called vestibulitis. It often starts a few days after a cold or virus infection. Symptoms include vertigo (the spinning type of dizziness) or a sense of unsteadiness and nausea. The symptoms usually go away in a couple of days without any treatment. You should rest and keep your head still. The dizziness can be worse if you move your head. Don't drive, work with dangerous machinery, or get up on ladders or scaffolds until a few days after the dizziness resolves. Medicine such as meclizine (Antivert, Bonine) can reduce the dizziness and nausea. Tranquilizers (such as diazepam) can suppress your sense of balance, reducing the unpleasantness of the vertigo. Call or return if you develop ear pain, loss of hearing, fever, severe vomiting, or any other new symptom. Prescriptions: Famotidine [Pepcid 20 mg Tablet] 20 mg PO BID #20 tablet Meclizine HCl [Antivert 25 mg Tablet] 25 mg PO TID PRN #21 tablet PRN Reason: Sucralfate [Carafate 1 gm Tablet] 1 gm PO QID #20 tablet Forms: Elevated Blood Pressure Referrals: PJ AGUILERA FNP-C [COMMUNITY BASED STAFF] - Follow up as needed
[2018-12-11 05:05] LABS: ABSOLUTE EOSINOPHILS # (AUTO) 0.1 10^3/uL (0.0-0.6); ABSOLUTE LYMPHOCYTES (AUTO) 2.3 10^3/uL (0.5-4.7); ABSOLUTE MONOCYTES (AUTO) 0.4 10^3/uL (0.1-1.4); ABSOLUTE NEUT (AUTO) 3.3 10^3/uL (1.7-8.2); BASOPHILS % (AUTO) 0.6 % (0-2); EOSINOPHILS % (AUTO) 1.3 % (0-6); HEMOGLOBIN 12.1 g/dL (12.0-15.5); LYMPHOCYTES % (AUTO) 37.4 % (13-45); MEAN CORPUSCULAR HEMOGLOBIN 30.7 pg (27.0-33.4); MEAN CORPUSCULAR HGB CONC 32.8 g/dL (32.0-36.0); MEAN CORPUSCULAR VOLUME 94 fl (80-97); PLATELET COUNT 228 10^3/uL (150-450); RED BLOOD COUNT 3.95 10^6/uL (3.72-5.28); RED CELL DISTRIBUTION WIDTH 12.6 % (11.5-14.0); SEGMENTED NEUTROPHILS % (AUTO) 53.7 % (42-78); TOTAL CELLS COUNTED % (AUTO) 100 %; WHITE BLOOD COUNT 6.2 10^3/uL (4.0-10.5)
[2018-12-11 05:25] LABS: ANION GAP 8 (5-19); BLOOD UREA NITROGEN 17 mg/dL (7-20); CALCIUM 9.1 mg/dL (8.4-10.2); CARBON DIOXIDE 28 mmol/L (22-30); CHLORIDE 107 mmol/L (98-107); GLUCOSE 105 mg/dL (75-110); POTASSIUM 4.8 mmol/L (3.6-5.0)
[2018-12-11 06:01] VITALS: BP 153/72
== END 2018-12-11 06:01 | disposition home or self-care (01) ==
LOC: ER 04:00
DX: J02.9 Acute pharyngitis, unspecified (principal); R42 Dizziness and giddiness; Z90.49 Acquired absence of other specified parts of digestive tract; Z87.442 Personal history of urinary calculi; K21.9 Gastro-esophageal reflux disease without esophagitis
CPT/HCPCS: 99284; 36415; 85025; 80048; J3490; A9270 ×2

== ENCOUNTER 2018-12-13 01:33 | Emergency (ER) | payer MEDICARE ==
[2018-12-13 01:38] VITALS: BP 173/63
--- NOTE | 2018-12-13 02:58 | ER Document Report ---
ED General - General Chief Complaint: Urinary Problem Stated Complaint: URINARY PROBLEMS Time Seen by Provider: 12/13/18 02:37 Notes: Patient is a pleasant 63-year-old female presents with complaint of dysuria. She says that she was recently started on meclizine as well as Carafate and ranitidine. She is unsure if maybe this could be causing her dysuria. She denies any fevers. No pain into the abdomen. No diarrhea. No other complaints at this time. TRAVEL OUTSIDE OF THE [place] IN LAST 30 DAYS: No - Related Data Allergies/Adverse Reactions: No Known Allergies Allergy (Verified 04/17/18 16:49) Past Medical History - Social History Smoking Status: Never Smoker Frequency of alcohol use: None Drug Abuse: None Family History: Reviewed & Not Pertinent Renal/ Medical History: Reports: Hx Kidney Stones. Denies: Hx Peritoneal Dialysis GI Medical History: Reports: Hx Gastroesophageal Reflux Disease Past Surgical History: Reports: Hx Cholecystectomy Review of Systems - Review of Systems Notes: My Normal Review Basic REVIEW OF SYSTEMS: CONSTITUTIONAL : Denies fever, chills, or sweats. Denies recent illness. RESPIRATORY: Denies cough, cold, or chest congestion. Denies shortness of breath, difficulty breathing, or wheezing. GASTROINTESTINAL: Denies abdominal pain. Denies nausea, vomiting, or diarrhea. GENITOURINARY: Dysuria SKIN: Denies rash or skin lesions. NEUROLOGICAL: Denies altered mental status or loss of consciousness. ALL OTHER SYSTEMS REVIEWED AND NEGATIVE. Physical Exam - Vital signs Vitals: Temp Pulse Resp BP Pulse Ox 97.6 F 61 18 173/63 H 100 12/13/18 01:35 12/13/18 01:35 12/13/18 01:35 12/13/18 01:35 12/13/18 01:35 - Notes Notes: General Appearance: Well nourished, alert, cooperative, no acute distress, no o bvious discomfort. Vitals: reviewed, See vital signs table. Eyes: PERRL, EOMI, Conjuctiva clear Lungs: No wheezing, No rales, No rhonci, No accessory muscle use, good air exchange bilaterally. Heart: Normal rate, Regular rythm, No murmur, no rub Abdomen: Normal BS, soft, No rigidity, No abdominal tenderness, No guarding, no rebound, no abdominal masses, no organomegaly Neuro: speech clear, oriented x 3, normal affect, responds appropriately to questions. Course - Re-evaluation Re-evalutation: 12/13/18 03:36 Patient's urinalysis does show evidence of urinary tract infection. Will treat with Keflex. Also give her Pyridium. I encouraged her return to ER immediately if she has worsening of her symptoms, fevers, vomiting, or feels unwell. She is to follow-up with your doctor in 3 to 5 days for reevaluation. Patient agrees with plan will be discharged home. Dictation of this chart was performed using voice recognition software; therefore, there may be some unintended grammatical errors. - Vital Signs Vital signs: Temp Pulse Resp BP Pulse Ox 97.6 F 61 18 173/63 H 100 12/13/18 01:35 12/13/18 01:35 12/13/18 01:35 12/13/18 01:35 12/13/18 01:35 - Laboratory Laboratory results interpreted by me: 12/13/18 03:04 Urine Blood SMALL H Ur Leukocyte Esterase SMALL H Urine Ascorbic Acid 20 H Discharge - Discharge Clinical Impression: UTI (urinary tract infection) Qualifiers: Urinary tract infection type: site unspecified Hematuria presence: with hematuria Qualified Code(s): N39.0 - Urinary tract infection, site not specified; R31.9 - Hematuria, unspecified Condition: Good Disposition: HOME, SELF-CARE Additional Instructions: Your urine shows evidence of aurinary tract infection. This is likely why you are having the pain when you pee. I have prescribed you a medication called Pyridium. This helps reduce the amount of pain you have when you pee. This medication will turn your urine orange. I also prescribed an antibiotic called Keflex. Please take this antibiotic until is completely finished. Please follow-up with your doctor in 3 days if you are still having any symptoms whatsoever. Return to the ER if you have fevers, worsening pain, vomiting, or feel unwell. Prescriptions: Cephalexin Monohydrate [Keflex 500 mg Capsule] 500 mg PO BID #10 capsule Phenazopyridine HCl [Pyridium 100 Mg Tablet] 100 mg PO TID #6 tablet Referrals: PJ AGUILERA, VILLAC [Primary Care Provider] - Follow up in 3-5 days
[2018-12-13 03:18] LABS: APPEARANCE,URINE SLIGHTLY-CLOUDY; BILIRUBIN,URINE NEGATIVE (NEGATIVE); COLOR,URINE YELLOW; GLUCOSE, URINE NEGATIVE (NEGATIVE); KETONES,URINE NEGATIVE (NEGATIVE); LEUKOCYTE ESTERASE,URINE SMALL (NEGATIVE); NITRITE,URINE NEGATIVE (NEGATIVE); PROTEIN,URINE NEGATIVE (NEGATIVE); URINE SPECIFIC GRAVITY 1.016; UROBILINOGEN,URINE NEGATIVE mg/dL (<2.0)
[2018-12-13] MEDS ORDERED: CEPHALEXIN 500 MG CAPSULE PO ONE (03:32)
[2018-12-13] MEDS ORDERED: PHENAZOPYRIDINE HCL 100 MG TABLET PO ONE (03:32)
== END 2018-12-13 03:55 | disposition home or self-care (01) ==
LOC: ER 01:33
DX: N39.0 Urinary tract infection, site not specified (principal); R31.9 Hematuria, unspecified; Z90.49 Acquired absence of other specified parts of digestive tract; Z87.442 Personal history of urinary calculi
CPT/HCPCS: 99283; 81001; A9270 ×2; J3490

== ENCOUNTER 2019-01-12 19:54 | Emergency (ER) | payer MEDICARE ==
[2019-01-12 20:02] VITALS: BP 152/77
[2019-01-12] MEDS ORDERED: IPRATROPIUM/ALBUTEROL 0.5-2.5 MG/3 ML AMPUL NEB ONE ×2 (20:24→23:15)
[2019-01-12] MEDS ORDERED: PREDNISONE 20 MG TABLET PO ONE ×2 (20:24→23:15)
--- NOTE | 2019-01-12 21:18 | RADIOLOGY REPORT (SQ) ---
EXAM DESCRIPTION: XR CHEST 1 VIEW COMPLETED DATE/TME: 01/12/2019 20:24 CLINICAL HISTORY: 63 years, Female, difficulty breathing COMPARISON: Neck were one
[2019-01-12 22:10] LABS: ABSOLUTE LYMPHOCYTES (AUTO) 2.6 10^3/uL (0.5-4.7); ABSOLUTE MONOCYTES (AUTO) 0.5 10^3/uL (0.1-1.4); ABSOLUTE NEUT (AUTO) 2.3 10^3/uL (1.7-8.2); BASOPHILS % (AUTO) 0.4 % (0-2); EOSINOPHILS % (AUTO) 0.8 % (0-6); HEMATOCRIT 37.4 % (36.0-47.0); HEMOGLOBIN 12.6 g/dL (12.0-15.5); LYMPHOCYTES % (AUTO) 47.6 % (13-45); MEAN CORPUSCULAR HEMOGLOBIN 31.2 pg (27.0-33.4); MEAN CORPUSCULAR HGB CONC 33.6 g/dL (32.0-36.0); MEAN CORPUSCULAR VOLUME 93 fl (80-97); MONOCYTES % (AUTO) 9.6 % (3-13); PLATELET COUNT 183 10^3/uL (150-450); RED BLOOD COUNT 4.03 10^6/uL (3.72-5.28); RED CELL DISTRIBUTION WIDTH 12.5 % (11.5-14.0); SEGMENTED NEUTROPHILS % (AUTO) 41.6 % (42-78); TOTAL CELLS COUNTED % (AUTO) 100 %; WHITE BLOOD COUNT 5.5 10^3/uL (4.0-10.5)
[2019-01-12 22:26] LABS: APPEARANCE,URINE SLIGHTLY-CLOUDY; BILIRUBIN,URINE NEGATIVE (NEGATIVE); COLOR,URINE YELLOW; GLUCOSE, URINE NEGATIVE (NEGATIVE); KETONES,URINE NEGATIVE (NEGATIVE); LEUKOCYTE ESTERASE,URINE TRACE (NEGATIVE); NITRITE,URINE NEGATIVE (NEGATIVE); PROTEIN,URINE NEGATIVE (NEGATIVE); URINE SPECIFIC GRAVITY 1.023; UROBILINOGEN,URINE NEGATIVE mg/dL (<2.0)
--- NOTE | 2019-01-12 22:32 | ER Document Report ---
ED Medical Screen (RME) - General Chief Complaint: Shortness Of Breath Stated Complaint: WHEEZING Time Seen by Provider: 01/12/19 22:24 Primary Care Provider: PJ AGUILERA FNP-C [Primary Care Provider] - Follow up as needed Notes: 63-year-old female chief complaint of cough, congestion, postnasal drainage, some intermittent sinus pressure for the past 4 to 5 days. Reports that she has developed wheezing as well. Denies fever. She denies any daily medications, she stopped smoking 40 years ago, she denies history of asthma. TRAVEL OUTSIDE OF THE [place] IN LAST 30 DAYS: No - Related Data Allergies/Adverse Reactions: No Known Allergies Allergy (Verified 01/12/19 19:55) Past Medical History Renal/ Medical History: Reports: Hx Kidney Stones. Denies: Hx Peritoneal Dialysis GI Medical History: Reports: Hx Gastroesophageal Reflux Disease Past Surgical History: Reports: Hx Cholecystectomy Physical Exam - Vital signs Vitals: Temp Pulse Resp BP Pulse Ox 98.3 F 80 20 152/77 H 95 01/12/19 20:00 01/12/19 20:00 01/12/19 20:00 01/12/19 20:00 01/12/19 20:00 - Respiratory Respiratory status: No respiratory distress. No: Respiratory distress, Retractions Breath sounds: Wheezing. No: Decreased air movement Course - Re-evaluation Re-evalutation: Patient with expiratory wheezes on exam, no tachypnea, no hypoxia, no distress. She is very youthful looking. I have greeted and performed a rapid initial assessment of this patient. A comprehensive ED assessment and evaluation of the patient, analysis of test results and completion of the medical decision making process will be conducted by additional ED providers. - Vital Signs Vital signs: Temp Pulse Resp BP Pulse Ox 98.3 F 80 20 152/77 H 95 01/12/19 20:00 01/12/19 20:00 01/12/19 20:00 01/12/19 20:00 01/12/19 20:00 - Laboratory Result Diagrams: 01/12/19 21:45 01/12/19 21:45 Laboratory results interpreted by me: 01/12/19 01/12/19 21:45 21:45 Seg Neutrophils % 41.6 L Lymphocytes % 47.6 H Urine Blood SMALL H Ur Leukocyte Esterase TRACE H Urine Ascorbic Acid 40 H Doctor's Discharge - Discharge Referrals: PJ AGUILERA, SURGICAL TERRITORY MANAGER-C [Primary Care Provider] - Follow up as needed
[2019-01-12 22:33] LABS: ALANINE AMINOTRANSFERASE 22 U/L (9-52); ALBUMIN 4.3 g/dL (3.5-5.0); ALKALINE PHOSPHATASE 105 U/L (38-126); ANION GAP 8 (5-19); ASPARTATE AMINO TRANSFERASE 29 U/L (14-36); BILIRUBIN,DIRECT 0.2 mg/dL (0.0-0.4); BILIRUBIN,TOTAL 0.3 mg/dL (0.2-1.3); BLOOD UREA NITROGEN 20 mg/dL (7-20); CALCIUM 9.4 mg/dL (8.4-10.2); CARBON DIOXIDE 30 mmol/L (22-30); CHLORIDE 105 mmol/L (98-107); CREATINE KINASE 143 U/L (30-135); GLUCOSE 96 mg/dL (75-110); POTASSIUM 4.6 mmol/L (3.6-5.0); SODIUM 142.6 mmol/L (137-145); TOTAL PROTEIN 7.7 g/dL (6.3-8.2)
[2019-01-12 22:44] LABS: CREATINE KINASE MB 0.66 ng/mL (<4.55); NT PRO BNP 50 pg/mL (5-900); TROPONIN I < 0.012 ng/mL
[2019-01-12] MEDS: ALBUTEROL SULFATE 0.083% NEB 2.5 MG/3 ML AMPUL NEB SCH ×2 (22:53→23:49)
--- NOTE | 2019-01-12 23:07 | EKG REPORT ---
SEVERITY:- NORMAL ECG - SINUS RHYTHM : Confirmed by: Ann Coello 12-Jan-2019 23:06:43
--- NOTE | 2019-01-13 00:25 | ER Document Report ---
ED Respiratory Problem - General Chief Complaint: Shortness Of Breath Stated Complaint: WHEEZING Time Seen by Provider: 01/12/19 22:24 Primary Care Provider: PJ AGUILERA FNP-C [COMMUNITY BASED STAFF] - Follow up as needed Notes: Patient is a 63-year-old female that comes to the Emergency Department with chief complaint of cough, congestion, postnasal drainage, some intermittent sinus pressure for the past 4 to 5 days. Reports that she has developed wheezing as well. Denies fever. She denies any daily medications, she stopped smoking 40 years ago, she denies history of asthma. TRAVEL OUTSIDE OF THE [place] IN LAST 30 DAYS: No - Related Data Allergies/Adverse Reactions: No Known Allergies Allergy (Verified 01/12/19 19:55) Past Medical History - General Information source: Patient - Social History Smoking Status: Former Smoker Frequency of alcohol use: None Drug Abuse: None Lives with: Family Family History: Reviewed & Not Pertinent Renal/ Medical History: Reports: Hx Kidney Stones. Denies: Hx Peritoneal Dialysis GI Medical History: Reports: Hx Gastroesophageal Reflux Disease Past Surgical History: Reports: Hx Cholecystectomy - Immunizations Immunizations up to date: Yes Hx Diphtheria, Pertussis, Tetanus Vaccination: Yes Review of Systems - Review of Systems Constitutional: See HPI EENT: No symptoms reported Cardiovascular: No symptoms reported Respiratory: See HPI Gastrointestinal: No symptoms reported Genitourinary: No symptoms reported Female Genitourinary: No symptoms reported Musculoskeletal: No symptoms reported Skin: No symptoms reported Hematologic/Lymphatic: No symptoms reported Neurological/Psychological: No symptoms reported Physical Exam - Vital signs Vitals: Temp Pulse Resp BP Pulse Ox 98.3 F 80 20 152/77 H 95 01/12/19 20:00 01/12/19 20:00 01/12/19 20:00 01/12/19 20:00 01/12/19 20:00 - Notes Notes: GENERAL: Alert, interacts well. No acute distress. HEAD: Normocephalic, atraumatic. EYES: Pupils equal, round, and reactive to light. Extraocular movements intact. ENT: Oral mucosa moist, tongue midline. Oropharynx unremarkable. Airway patent. Nares patent, no nasal septal hematoma, TM's intact. NECK: Full range of motion. Supple. Trachea midline. LUNGS: Expiratory wheezes which are mild throughout, still has good lung sounds throughout, no tachypnea, no respiratory distress. Occasional congested cough. HEART: Regular rate and rhythm. No murmur ABDOMEN: Soft, non-tender. Non-distended. Bowel sounds present in all 4 quadrants. GENITOURINARY: Deferred EXTREMITIES: Moves all 4 extremities spontaneously. No edema, normal radial and dorsalis pedis pulses bilaterally. No cyanosis. BACK: no cervical, thoracic, lumbar midline tenderness. No saddle anesthesia, normal distal neurovascular exam. Moves all extremities in full range of motion. NEUROLOGICAL: Alert and oriented x3. Normal speech. Cranial nerves II through XII grossly intact. PSYCH: Normal affect, normal mood. SKIN: Warm, dry, normal turgor. No rashes or lesions noted. Course - Re-evaluation Re-evalutation: Patient is a very healthy and youthful appearing 63-year-old female. She does have expiratory wheezes and occasional cough on my evaluation. Otherwise her e xamination is unremarkable. Work-up without acute finding including negative troponin after several days of symptoms. Chest x-ray does not show pneumonia. Vital signs are unremarkable. On reevaluation after DuoNeb treatment patient is not wheezing anymore although she still has occasional congested cough. I discussed with patient, patient will be placed on steroids, provided with work-release, provided with albuterol inhaler, follow-up with primary care closely, and return if she worsens in any way. Patient states satisfaction agreement. She is going home with her significant other. - Vital Signs Vital signs: Temp Pulse Resp BP Pulse Ox 98.3 F 80 20 152/77 H 95 01/12/19 20:00 01/12/19 20:00 01/12/19 20:00 01/12/19 20:00 01/12/19 20:00 - Laboratory Result Diagrams: 01/12/19 21:45 01/12/19 21:45 Laboratory results interpreted by me: 01/12/19 01/12/19 01/12/19 21:45 21:45 21:45 Seg Neutrophils % 41.6 L Lymphocytes % 47.6 H Creatine Kinase 143 H Urine Blood SMALL H Ur Leukocyte Esterase TRACE H Urine Ascorbic Acid 40 H Discharge - Discharge Clinical Impression: Wheezing, Cough Condition: Stable Disposition: HOME, SELF-CARE Additional Instructions: Your chest x-ray and laboratory work-up did not show any concerning findings. Your evaluation is consistent with bronchitis. This appears to be viral. This should resolve with time, however to treat the worsening symptoms and wheezing take the prednisone as prescribed, use the albuterol inhaler as prescribed every 4-6 hours as needed. Follow-up closely with primary care. Return if you worsen including fever, increased difficulty breathing, severe pain, or any other concerning or worsening symptoms. Prescriptions: Albuterol Sulfate [Proair HFA Inhalation Aerosol 8.5 gm MDI] 2 puff IH Q4H PRN #1 mdi PRN Reason: Prednisone [Deltasone 20 mg Tablet] 3 tab PO DAILY 5 Days tablet Forms: Return to Work Referrals: PJ AGUILERA, COMPUTER FORENSIC EXAMINER-C [COMMUNITY BASED STAFF] - Follow up as needed
== END 2019-01-13 00:35 | disposition home or self-care (01) ==
LOC: ER 19:54
DX: R05 Cough (principal); R06.2 Wheezing; R09.82 Postnasal drip; Z87.891 Personal history of nicotine dependence
CPT/HCPCS: 93005; 94640 ×2; 99285; 36415; 82553; 82550; 85025; 80053; 81001; 84484; 83880; 71045; 93010; A9270 ×3; J7512; J7620

== ENCOUNTER 2019-06-01 23:38 | Emergency (ER) | payer MEDICARE ==
[2019-06-02 00:08] VITALS: BP 143/57
--- NOTE | 2019-06-02 01:33 | ER Document Report ---
ED GI/ - General Chief Complaint: Abdominal Pain Stated Complaint: ABDOMINAL PAIN Time Seen by Provider: 06/02/19 01:32 Notes: Patient is a 63-year-old female presents to the emergency department requesting a work note. Voices earlier today she did have generalized abdominal pain. States she missed work. States she is unable to return to work until she has a doctor's note. Patient is denying any abdominal pain at this time. She is de nying any nausea, vomiting, diarrhea. She is denying any dysuria or vaginal discharge. Patient voices "I feel fine now." Patient voices the pain she did have was in her left upper quadrant and "dull" in nature. Patient voices she has no medical problems, takes no daily medications, has no allergies. TRAVEL OUTSIDE OF THE [place] IN LAST 30 DAYS: No - Related Data Allergies/Adverse Reactions: No Known Allergies Allergy (Verified 01/12/19 19:55) Past Medical History - General Information source: Patient - Social History Smoking Status: Unknown if Ever Smoked Family History: Reviewed & Not Pertinent Renal/ Medical History: Reports: Hx Kidney Stones. Denies: Hx Peritoneal Dialysis GI Medical History: Reports: Hx Gastroesophageal Reflux Disease Past Surgical History: Reports: Hx Cholecystectomy - Immunizations Immunizations up to date: Yes Hx Diphtheria, Pertussis, Tetanus Vaccination: Yes Review of Systems - Review of Systems Constitutional: denies: Fever EENT: No symptoms reported Cardiovascular: No symptoms reported Respiratory: No symptoms reported Gastrointestinal: See HPI Genitourinary: See HPI Female Genitourinary: No symptoms reported Musculoskeletal: No symptoms reported Skin: No symptoms reported Hematologic/Lymphatic: No symptoms reported Neurological/Psychological: No symptoms reported Physical Exam - Vital signs Vitals: Temp Pulse Resp BP Pulse Ox 97.8 F 65 18 143/57 H 100 06/02/19 00:07 06/02/19 00:07 06/02/19 00:07 06/02/19 00:07 06/02/19 00:07 - Notes Notes: GENERAL: Alert, interacts well. No acute distress. HEAD: Normocephalic, atraumatic. EYES: Pupils equal, round, and reactive to light. Extraocular movements intact. ENT: Oral mucosa moist, tongue midline. NECK: Full range of motion. Supple. Trachea midline. LUNGS: Clear to auscultation bilaterally, no wheezes, rales, or rhonchi. No respiratory distress. HEART: Regular rate and rhythm. No murmur ABDOMEN: Soft, non-tender. Non-distended. Bowel sounds present in all 4 quadrants. EXTREMITIES: Moves all 4 extremities spontaneously. No edema, normal radial and dorsalis pedis pulses bilaterally. No cyanosis. BACK: no cervical, thoracic, lumbar midline tenderness. No saddle anesthesia, normal distal neurovascular exam. NEUROLOGICAL: Alert and oriented x3. Normal speech. cranial nerves II through XII grossly intact PSYCH: Normal affect, normal mood. SKIN: Warm, dry, normal turgor. No rashes or lesions noted. Course - Re-evaluation Re-evalutation: Patient presents to the emergency department requesting a doctor's note. She is denying any abdominal pain at this time. Examination of patient's abdomen reveals no pain, is benign. Discussed with her should her pain return she should return to the emergency department. Also discussed close follow-up with primary care provider. Patient stable for discharge. - Vital Signs Vital signs: Temp Pulse Resp BP Pulse Ox 97.8 F 65 18 143/57 H 100 06/02/19 00:07 06/02/19 00:07 06/02/19 00:07 06/02/19 00:07 06/02/19 00:07 Discharge - Discharge Clinical Impression: Abdominal pain Qualifiers: Abdominal location: generalized Qualified Code(s): R10.84 - Generalized abdominal pain Condition: Stable Disposition: HOME, SELF-CARE Instructions: Abdominal Pain ([facility]) Additional Instructions: As we discussed you have been seen and treated in the emergency department for abdominal pain. Please follow-up with your primary care provider in the next 12 to 24 hours. Return to the emergency room for any concerns. Forms: Return to Work
== END 2019-06-02 01:35 | disposition home or self-care (01) ==
LOC: ER 23:38
DX: R10.84 Generalized abdominal pain (principal); Z90.49 Acquired absence of other specified parts of digestive tract; Z87.442 Personal history of urinary calculi; Z87.19 Personal history of other diseases of the digestive system

== ENCOUNTER 2019-07-15 13:03 | Emergency (ER) | payer MEDICARE ==
[2019-07-15 13:36] VITALS: BP 139/75
--- NOTE | 2019-07-15 14:16 | ER Document Report ---
HPI - HPI Patient complains to provider of: Nausea Time Seen by Provider: 07/15/19 14:05 Onset: Other - 2 weeks Onset/Duration: Persistent Pain Level: Denies Context: 63-year-old female presents emergency department with complaints of nausea for the past 2 weeks. Reports nausea that happened at night. She reports when she wakes up in the morning is gone. Today when she woke up it was still there. She denies fever vomiting diarrhea. Reports she has a history of reflux and this is what typically happens with her reflux. She does not have a GI doctor here in [place]. She denies chest pain. Denies shortness of breath. Denies back pain. Denies abdominal pain pain with void. Associated Symptoms: None Exacerbated by: Denies Relieved by: Denies Similar symptoms previously: Yes Recently seen / treated by doctor: No - GASTROINTESTINAL Gastrointestinal: DENIES: Abdominal Pain, Black / Bloody Stools - REPRODUCTIVE Reproductive: DENIES: : Past Medical History - General Information source: Patient - Social History Smoking Status: Never Smoker Chew tobacco use (# tins/day): No Drug Abuse: None Lives with: Family Family History: Reviewed & Not Pertinent Patient has suicidal ideation: No Patient has homicidal ideation: No Renal/ Medical History: Reports: Hx Kidney Stones. Denies: Hx Peritoneal Dialysis GI Medical History: Reports: Hx Gastroesophageal Reflux Disease Past Surgical History: Reports: Hx Cholecystectomy - Immunizations Immunizations up to date: Yes Hx Diphtheria, Pertussis, Tetanus Vaccination: Yes Vertical Provider Document - CONSTITUTIONAL Agree With Documented VS: Yes Exam Limitations: No Limitations General Appearance: WD/WN, No Apparent Distress - INFECTION CONTROL TRAVEL OUTSIDE OF THE [place] IN LAST 30 DAYS: No - HEENT HEENT: Atraumatic, Normal ENT Exam, Normocephalic, PERRLA. negative: Conjuctival Injection, Pharyngeal Erythema, Tympanic Membrane Red - NECK Neck: Normal Inspection, Supple. negative: Lymphadenopathy-Left, Lymphadenopathy-Right - RESPIRATORY Respiratory: Breath Sounds Normal, No Respiratory Distress - CARDIOVASCULAR Cardiovascular: Regular Rate, Regular Rhythm - GI/ABDOMEN Gastrointestinal: Abdomen Soft, Abdomen Non-Tender - MUSCULOSKELETAL/EXTREMETIES Musculoskeletal/Extremeties: MAEW, FROM - NEURO Level of Consciousness: Awake, Alert, Appropriate Motor/Sensory: No Motor Deficit - DERM Integumentary: Warm, Dry Course - Re-evaluation Re-evalutation: 07/15/19 14:18 63-year-old female presents with complaints of nausea at nighttime with history of reflux. She reports she woke up this morning still had nausea so she came here. She reports she has had this nausea with her reflux for years. She denies all other complaints such as fever vomiting diarrhea abdominal pain chest pain shortness of breath. Denies pain with void. Reports she does not have a GI doctor here. She was given referral names to follow-up with. She was also given a prescription for Zofran for the nausea. Patient was instructed to return here for any worsening symptoms or concerns. She verbalized understanding to all instruction. - Vital Signs Vital signs: Temp Pulse Resp BP Pulse Ox 98 F 62 18 139/75 H 96 07/15/19 13:35 07/15/19 13:35 07/15/19 13:35 07/15/19 13:35 07/15/19 13:35 Discharge - Discharge Clinical Impression: Nausea Condition: Stable Disposition: HOME, SELF-CARE Instructions: Antinausea Medication ([facility]), Gastroenterology Additional Instructions: *You have been evaluated for nausea with history of reflux *Take medication as prescribed *Follow up with a primary care provider within 1 week for recheck Follow-up with gastroenterology for evaluation *Return to ED for worsening condition, changes, needs Monitor your blood pressure. Your blood pressure was elevated today. This may be because you were anxious, in pain or because you need medication. It is important to follow up with your primary care provider for full evaluation. Prescriptions: Ondansetron HCl [Zofran 4 mg Tablet] 1 - 2 tab PO Q4H PRN #10 tablet PRN Reason: Forms: Elevated Blood Pressure Referrals: PAULETTE ANDUJAR MD [ACTIVE STAFF] - Follow up as needed RENETTA NEUMANN MD [ACTIVE STAFF] - Follow up as needed MILADIS CASON MD [ACTIVE STAFF] - Follow up as needed
== END 2019-07-15 14:18 | disposition home or self-care (01) ==
LOC: ER 13:03
DX: R11.0 Nausea (principal)
CPT/HCPCS: 99283

== ENCOUNTER → 2019-10-04 | Outpatient (CLI) | payer MEDICARE, MEDICAID ==
--- NOTE | 2019-10-04 14:09 | WOMENS IMAGING REPORT ---
EXAM DESCRIPTION: BILAT SCREENING MAMMO W/CAD COMPLETED DATE/TIME: 10/04/2019 12:00 pm REASON FOR STUDY: Z12.31 SCREENING MAMMO Z12.31 ENCNTR SCREEN MAMMOGRAM FOR MALIGNANT NEOPLASM OF B RE COMPARISON: None. EXAM PARAMETERS: Standard craniocaudal and mediolateral oblique views of each breast recorded using digital acquisition. Read with the assistance of CAD. .[facility] - [facility] Mechanic'S Assistant Version 9.2 LIMITATIONS: None. FINDINGS: No suspicious masses, suspicious calcifications or architectural distortion. No areas of c oncern. IMPRESSION: NEGATIVE MAMMOGRAM. BIRADS 1 BREAST DENSITY: b. There are scattered areas of fibroglandular density. BIRAD: ASSESSMENT: 1 NEGATIVE RECOMMENDATION: ROUTINE SCREENING Please continue yearly bilateral screening mammography/tomosynthesis in September 2020 COMMENT: The patient has been notified of the results by letter per [place] requirements. Additional no tification policies are in place for contacting patient with suspicious or incomplete findings. Quality ID #[id number]: The [employer] recommends an annual screening mammogram for women aged 40 years or over. This facility utilizes a reminder system to ensure that all patients receive reminder letters, and/or direct phone calls for appointments. This includes reminders for routine scr eening mammograms, diagnostic mammograms, or other Breast Imaging Interventions when appropriate. Th is patient will be placed in the appropriate reminder system. TECHNICAL DOCUMENTATION: FINDING NUMBER: (1) ASSESSMENT: (1) JOB ID: [id number] 2010 [employer]- All Rights Reserved Reading location - IP/workstation name: [id number]
== END ==
LOC: WI 11:20
PROVIDERS: ATTEND Psychiatry & Neurology Psychiatry
DX: Z12.31 Encounter for screening mammogram for malignant neoplasm of breast (principal)
CPT/HCPCS: 77067

== ENCOUNTER 2020-07-20 13:32 | Emergency (ER) | payer MEDICARE, MEDICAID ==
[2020-07-20] MEDS ORDERED: MECLIZINE HCL 25 MG TABLET PO ONE ×2 (14:37→18:24)
[2020-07-20] MEDS ORDERED: ONDANSETRON 4 MG TAB.RAPDIS PO ONE (14:37)
--- NOTE | 2020-07-20 14:41 | ER Document Report ---
ED Medical Screen (RME) - General Chief Complaint: Nausea Stated Complaint: NAUSEA,DIZZINES Time Seen by Provider: 07/20/20 14:34 Primary Care Provider: TOBY PARKER NP [Primary Care Provider] - Follow up as needed Notes: Patient presents complaining of dizziness that started at 1:00 this morning. Patient states that it causes her to feel off balance and she has felt faint. Patient reports nausea and vomiting due to the dizziness. Patient does complain of some sinus congestion. Patient denies any chest pain, headache or shortness of breath. Patient denies any significant past medical history. I have greeted and performed a rapid initial assessment of this patient. A comprehensive ED assessment and evaluation of the patient, analysis of test results and completion of the medical decision making process will be conducted by additional ED providers. TRAVEL OUTSIDE OF THE [place] IN LAST 30 DAYS: No - Related Data Allergies/Adverse Reactions: No Known Allergies Allergy (Verified 07/15/19 14:05) Past Medical History Renal/ Medical History: Reports: Hx Kidney Stones. Denies: Hx Peritoneal Dialysis GI Medical History: Reports: Hx Gastroesophageal Reflux Disease Past Surgical History: Reports: Hx Cholecystectomy - Immunizations Immunizations up to date: Yes Hx Diphtheria, Pertussis, Tetanus Vaccination: Yes Physical Exam - Vital signs Vitals: Temp Pulse Resp BP Pulse Ox 98.0 F 70 18 157/59 H 100 07/20/20 14:05 07/20/20 14:05 07/20/20 14:05 07/20/20 14:05 07/20/20 14:05 - General General appearance: Appears well, Alert - Respiratory Respiratory status: No respiratory distress - Neurological Neuro grossly intact: Yes Cognition: Normal [place] Coma Scale Eye Opening: Spontaneous [place] Coma Scale Verbal: Oriented [place] Coma Scale Motor: Obeys Commands [place] Coma Scale Total: 15 Course - Vital Signs Vital signs: Temp Pulse Resp BP Pulse Ox 98.0 F 70 18 157/59 H 100 07/20/20 14:07/20/20 14:07/20/20 14:05 07/20/20 14:05 07/20/20 14:05 Doctor's Discharge - Discharge Referrals: TOBY PARKER NP [Primary Care Provider] - Follow up as needed
--- NOTE | 2020-07-20 15:09 | RADIOLOGY REPORT (SQ) ---
EXAM DESCRIPTION: CHEST SINGLE VIEW IMAGES COMPLETED DATE/TIME: 07/20/2020 2:53 pm REASON FOR STUDY: dizziness COMPARISON: None. EXAM PARAMETERS: NUMBER OF VIEWS: One view. TECHNIQUE: Single frontal radiographic view of the chest acquired. RADIATION DOSE: NA LIMITATIONS: None. FINDINGS: LUNGS AND PLEURA: No opacities, masses or pneumothorax. No pleural effusion. MEDIASTINUM AND HILAR STRUCTURES: No masses. Contour normal. HEART AND VASCULAR STRUCTURES: Heart normal in size. Normal vasculature. BONES: No acute findings. HARDWARE: None in the chest. OTHER: No other significant finding. IMPRESSION: NO ACUTE RADIOGRAPHIC FINDING IN THE CHEST. TECHNICAL DOCUMENTATION: JOB ID: [id number] 2010 [employer]- All Rights Reserved Reading location - IP/workstation name: [email or web address]
[2020-07-20 15:57] LABS: ABSOLUTE EOSINOPHILS # (AUTO) 0.2 10^3/uL (0.0-0.6); ABSOLUTE LYMPHOCYTES (AUTO) 1.6 10^3/uL (0.5-4.7); ABSOLUTE MONOCYTES (AUTO) 0.4 10^3/uL (0.1-1.4); ABSOLUTE NEUT (AUTO) 4.3 10^3/uL (1.7-8.2); BASOPHILS % (AUTO) 0.4 % (0-2); EOSINOPHILS % (AUTO) 2.5 % (0-6); HEMATOCRIT 37.5 % (36.0-47.0); HEMOGLOBIN 12.6 g/dL (12.0-15.5); LYMPHOCYTES % (AUTO) 24.7 % (13-45); MEAN CORPUSCULAR HEMOGLOBIN 30.8 pg (27.0-33.4); MEAN CORPUSCULAR HGB CONC 33.6 g/dL (32.0-36.0); MEAN CORPUSCULAR VOLUME 92 fl (80-97); MONOCYTES % (AUTO) 5.7 % (3-13); PLATELET COUNT 234 10^3/uL (150-450); RED BLOOD COUNT 4.09 10^6/uL (3.72-5.28); RED CELL DISTRIBUTION WIDTH 12.2 % (11.5-14.0); SEGMENTED NEUTROPHILS % (AUTO) 66.7 % (42-78); TOTAL CELLS COUNTED % (AUTO) 100 %; WHITE BLOOD COUNT 6.4 10^3/uL (4.0-10.5)
[2020-07-20 16:14] LABS: ALBUMIN 4.1 g/dL (3.5-5.0); ALKALINE PHOSPHATASE 117 U/L (38-126); ASPARTATE AMINO TRANSFERASE 25 U/L (14-36); BILIRUBIN,DIRECT 0.2 mg/dL (0.0-0.4); BILIRUBIN,TOTAL 0.4 mg/dL (0.2-1.3); BLOOD UREA NITROGEN 14 mg/dL (7-20); CALCIUM 9.8 mg/dL (8.4-10.2); CARBON DIOXIDE 33 mmol/L (22-30); CHLORIDE 102 mmol/L (98-107); GLUCOSE 100 mg/dL (75-110); POTASSIUM 4.5 mmol/L (3.6-5.0); TOTAL PROTEIN 7.7 g/dL (6.3-8.2)
[2020-07-20 16:15] LABS: ANION GAP 4 (5-19)
[2020-07-20] MEDS ORDERED: ONDANSETRON 4 MG TAB.RAPDIS ONE (18:25)
--- NOTE | 2020-07-20 18:49 | EKG REPORT ---
SEVERITY:- NORMAL ECG - SINUS BRADYCARDIA : Confirmed by: Baudilio Urias MD 20-Jul-2020 18:49:03
--- NOTE | 2020-07-20 21:19 | ER Document Report ---
ED GI/ - General Chief Complaint: Nausea Stated Complaint: NAUSEA,DIZZINES Time Seen by Provider: 07/20/20 14:34 Primary Care Provider: TOBY PARKER NP [Primary Care Provider] - Follow up as needed Mode of Arrival: Ambulatory Information source: Patient Notes: 64-year-old female presented to ED complaining of dizziness started about 1 AM in the morning. She thinks it caused her to be a little unbalanced feeling faint nauseated. She states she has had this before when she has sinus congestion. She states she has some sinus congestion now. She states she has not had any fever shortness of breath or headache any chest pain. She states she does have a history of kidney stones reflux and a gallbladder removal but no other significant medical history. She states she does live with her dad is that she takes care of him she does not smoke rarely drinks and does not use any illicit drugs. Constitutional: Negative for fever. HENT: Sinus congestion some eczema to the ears with itching and some pressure at times in her head but no real headache Eyes: Negative for visual changes. Cardiovascular: Negative for chest pain. Has been dizzy off and on since morning but no chest pain Respiratory: Negative for shortness of breath. Gastrointestinal: She has had some nausea when she gets dizzy but otherwise no nausea Genitourinary: Negative for dysuria. Musculoskeletal: Negative for back pain. Skin: Negative for rash. Neurological: Negative for headaches, weakness or numbness. 10 point ROS negative except as marked above and in HPI. VITAL SIGNS: Within normal limits. GENERAL: No acute distress, non-toxic appearance. HEAD: Normal with no signs of head trauma. EYES: PERRLA, EOMI, conjunctiva normal, no discharge. EARS: Hearing grossly intact. NOSE: Nasal congestion bilaterally purulent nasal drainage THROAT: Postnasal drip with no swelling or redness to the tonsils NECK: Normal range of motion, no tenderness, supple, no lymphadenopathy, No adenopathy, no JVD. CHEST: Clear breath sounds bilaterally. No wheezes, rales, or rhonchi. CARDIAC: Regular rate and rhythm. S1 and S2, without murmurs, gallops, or rubs. VASCULAR: No Edema. Peripheral pulses normal and equal in all extremities. ABDOMEN: Normal and soft with no tenderness, no masses or pulsatile masses. GASTROINTESTINAL: Bowel sounds normal has nausea at this time no abdominal tenderness GENITOURINARY: Normal, No tenderness LYMPATHTIC: No lymphadenopathy noted. MUSCULOSKELETAL: Good range of motion of all major joints. Extremities without clubbing, cyanosis or edema. NEUROLOGICAL: Alert and oriented x 3. No focal sensory or strength deficits. Speech normal. Follows commands appropriately. PSYCHIATRIC: Normal Affect, judgement and mood. SKIN: Normal appearance with no rashes or lesions. TRAVEL OUTSIDE OF THE [place] IN LAST 30 DAYS: No - HPI Patient complains to provider of: Other - Dizzy and nauseated at times not right now Onset: This morning - 1:00 in the morning Timing/Duration: Better Quality of pain: No pain Severity in ED: None Pain Level: Denies Vaginal bleeding (Compared to normal period): None Associated symptoms: Dizzy - She states he, Nausea, Other - Nasal congestion and stuffiness, eczema rash to both ears Exacerbated by: Walking Relieved by: Denies Similar symptoms previously: Yes Recently seen / treated by doctor: No - Related Data Allergies/Adverse Reactions: No Known Allergies Allergy (Verified 07/15/19 14:05) Past Medical History - General Information source: Patient - Social History Smoking Status: Never Smoker Frequency of alcohol use: Rare Drug Abuse: None Lives with: Parents Family History: Reviewed & Not Pertinent Patient has suicidal ideation: No Patient has homicidal ideation: No - Past Medical History Cardiac Medical History: Reports: None Pulmonary Medical History: Reports: None EENT Medical History: Reports: None Neurological Medical History: Reports: None Endocrine Medical History: Reports: None Renal/ Medical History: Reports: Hx Kidney Stones Malignancy Medical History: Reports: None GI Medical History: Reports: Hx Gastroesophageal Reflux Disease Musculoskeletal Medical History: Reports None Skin Medical History: Reports None Psychiatric Medical History: Reports: None Traumatic Medical History: Reports: None Infectious Medical History: Reports: None Past Surgical History: Reports: Hx Cholecystectomy - Immunizations Immunizations up to date: Yes Hx Diphtheria, Pertussis, Tetanus Vaccination: Yes Physical Exam - Vital signs Vitals: Temp Pulse Resp BP Pulse Ox 98.0 F 70 18 157/59 H 100 07/20/20 14:05 07/20/20 14:05 07/20/20 14:05 07/20/20 14:05 07/20/20 14:05 Course - Re-evaluation Re-evalutation: 07/20/20 21:56 Discussed labs with patient written report of labs given to patient. Patient does have an upper respiratory infection with some nasal drainage. She also has some eczema to both ears. She is can follow-up with her primary care doctor to get her usual eczema treatment. She was given some home remedies to use for her sinus congestion. I did discharge her home with a prescription for Zofran for the nausea when she gets dizzy. She states she would call her primary care on Wednesday and follow-up. Patient was discharged home after she verbalized understanding and agreement with treatment plan. - Vital Signs Vital signs: Temp Pulse Resp BP Pulse Ox 98.0 F 70 18 157/59 H 100 07/20/20 14:05 07/20/20 14:05 07/20/20 14:05 07/20/20 14:05 07/20/20 14:05 - Laboratory Results Result Diagrams: 07/20/20 15:22 07/20/20 15:22 Laboratory Results Interpreted: 07/20/20 15:22 Carbon Dioxide 33 H Anion Gap 4 L Critical Laboratory Results Reviewed: No Critical Results - Radiology Results Critical Radiology Results Reviewed: No Critical Results Discharge - Discharge Clinical Impression: Dizziness URI (upper respiratory infection) Qualifiers: URI type: unspecified viral URI Qualified Code(s): J06.9 - Acute upper respiratory infection, unspecified Condition: Stable Disposition: HOME, SELF-CARE Additional Instructions: DIZZINESS: Under normal circumstances, your sense of balance is controlled by a number of signals that your brain receives from several locations: Eyes. No matter what your position, visual signals help you determine where your body is in space and how it's moving. Sensory nerves. These are in your skin, muscles and joints. Sensory nerves send messages to your brain about body movements and positions. Inner ear. The organ of balance in your inner ear is the vestibular labyrinth. It includes loop-shaped structures (semicircular canals) that contain fluid and fine, hair-like sensors that monitor the rotation of your head. Near the semicircular canals are the utricle and saccule, which contain tiny particles called otoconia (i-[id number]-[id number]-[id number]-uh). These particles are attached to sensors that help detect gravity and cdrp-aui-tupvo motion. Good balance depends on at least two of these three sensory systems working well. For instance, closing your eyes while washing your hair in the shower doesn't mean you'll lose your balance. Signals from your inner ear and sensory nerves help keep you upright. However, if your central nervous system can't process signals from all of these locations, if the messages are contradictory, or if the sensory systems aren't functioning properly, you may experience loss of balance. Dizziness may have a number of potential causes. These may include: Vertigo Vertigo - the false sense of motion or spinning - is the most common symptom of dizziness. Sitting up or moving around may make it worse. Sometimes vertigo is severe enough to cause nausea and vomiting. Vertigo usually results from a problem with the nerves and the structures of the balance mechanism in your inner ear (vestibular system), which sense movement and changes in your head position. Abnormal rhythmic eye movements (nystagmus) almost always accompany vertigo. Causes of vertigo may include: Benign paroxysmal positional vertigo (BPPV). BPPV involves intense, brief episodes of vertigo associated with a change in the position of your head, often when you turn over in bed or sit up in the morning. It occurs when normal calcium carbonate crystals (otoconia) break loose and fall into the wrong part of the canals in your inner ear. When these particles shift, they stimulate sensors in your ear, producing an episode of vertigo. Doctors don't know what causes BPPV, but it may be a natural result of aging. Trauma to your head also may lead to BPPV. Inflammation in the inner ear. Signs and symptoms of inflammation of the inne r ear (acute vestibular neuronitis or labyrinthitis) include sudden, intense vertigo that may persist for several days, with nausea and vomiting. It can be incapacitating, requiring bed rest to minimize the signs and symptoms. Fortunately, vestibular neuronitis generally subsides and clears up on its own. Recovery time may be shorter with vestibular rehabilitation exercises. Although the cause of this condition is unknown, it may be a viral infection. Meniere's disease. This disease involves the excessive buildup of fluid in your inner ear. It may affect adults at any age and is characterized by sudden episodes of vertigo lasting 30 minutes to an hour or longer. Other signs and symptoms include the feeling of fullness in your ear, buzzing or ringing in your ear (tinnitus), and fluctuating hearing loss. The cause of Meniere's disease is unknown. Vestibular migraine. People who experience a vestibular migraine are very sensitive to motion. Dizziness and vertigo caused by a vestibular migraine may be triggered by turning your head quickly, being in a crowded or confusing place, driving or riding in a vehicle, or even watching movement on TV. A vestibular migraine may cause feelings of imbalance or unsteadiness, hearing loss, "muffled" hearing, or ringing in your ears (tinnitus). For most people with a vestibular migraine, vertigo doesn't necessarily happen at the same time as the headache. Instead, typical migraine triggers may lead to vertigo without an actual migraine. Attacks of migrainous vertigo can last from a few minutes to several days. Acoustic neuroma. An acoustic neuroma (schwannoma) is a noncancerous (benign) growth on the acoustic nerve, which connects the inner ear to your brain. Signs and symptoms of an acoustic neuroma may include dizziness, loss of balance, hearing loss and tinnitus. Rapid changes in motion. Riding on roller coasters or in boats, cars or even airplanes may on occasion make you dizzy. Other causes. Rarely, vertigo can be a symptom of a more serious neurological problem such as a stroke, brain hemorrhage or multiple sclerosis. Feeling of faintness (presyncope) "Presyncope" is the medical term for feeling faint and lightheaded without losing consciousness. Sometimes nausea, pale skin and a sense of dizziness accompany a feeling of faintness. Causes of presyncope include: Drop in blood pressure (orthostatic hypotension). A dramatic drop in your systolic blood pressure - the higher number in your blood pressure reading - may result in lightheadedness or a feeling of faintness. It can occur after sitting up or standing too quickly. Inadequate output of blood from the heart. Conditions such as partially blocked arteries (atherosclerosis), disease of the heart muscle (cardiomyopathy), abnormal heart rhythm (arrhythmia) or a decrease in blood volume may cause inadequate blood flow from your heart. Loss of balance (disequilibrium) Disequilibrium is the loss of balance or the feeling of unsteadiness when you walk. Causes may include: Inner ear (vestibular) problems. Abnormalities with your inner ear can cause you to feel like you are floating, have a heavy head or are unsteady in the dark. Sensory disorders. Failing vision and nerve damage in your legs (peripheral neuropathy) are common in older adultsand may result in difficulty maintaining your balance. Joint and muscle problems. Muscle weakness and osteoarthritis - the type of arthritis that involves wear and tear of your joints - can contribute to loss of balance when it involves your weight-bearing joints. Medications. Loss of balance can be a side effect of certain medications, such as anti-seizure drugs, sedatives and tranquilizers. Lightheadedness and other kinds of dizziness Feeling lightheaded is the feeling of being "spaced out" or having the sensation of spinning inside your head. It can also give you the sensation that if your lightheadedness worsens, you might lose consciousness. Causes may include: Inner ear disorders. These abnormalities of your inner ear can lead to illusions of motion and make you feel like you're floating. Anxiety disorders. Certain anxiety disorders, such as panic attacks and a fear of leaving home or being in large, open spaces (agoraphobia), may cause lightheadedness. Hyperventilation. Abnormally rapid breathing that often accompanies anxiety disorders may make you feel lightheaded. UPPER RESPIRATORY ILLNESS: You have a viral infection of the respiratory passages -- a "cold." This common infection causes nasal congestion, drainage, and often sore throat and cough. It is highly contagious. The disease usually lasts about 10 to 14 days. There is no "cure" for the viral infection -- it must run its course. If there is a complication, such as bacterial infection in the nose, sinuses, middle ear, or bronchial tubes, antibiotics may be required. The antibiotics won't affect the virus. Drink plenty of fluids. A humidifier may help. An expectorant medication or decongestant may make you more comfortable. Use acetaminophen or ibuprofen for fever or aches. See the doctor if fever persists over two days, if there is any significant worsening of your symptoms, or if you simply fail to improve as expected. You have been recommended treatment with Zyrtec 10 mg Sudafed 30 mg and Mucinex 600 mg. These are all gucw-xxu-wbpjkhl medications for cough cold congestion. You do need to call the go to the pharmacist to get the Sudafed from behind the counter please get a little red pills they are more effective. You could also use Flonase which is zgbs-aet-lurbjmk 1 spray each nostril twice a day. You could also use salt soda solution gargles. These will help to remove the joshua inage from the back your throat. Chloraseptic spray was lgut-bfs-kwevgos that will also help with your sore throat. Salt and soda solution gargle 1 quart of water 1 tablespoon of salt 1 teaspoon of baking soda Mixed 3 ingredients together and boil for 1 minute Placed in a covered quart jar Use 1/2 ounce of cold solution to gargle 3 times a day USE OF ACETAMINOPHEN (Tylenol): Acetaminophen may be taken for pain relief or fever control. It's much safer than aspirin, offering a wider range of "safe" dosages. It is safe during . Some brand names are Tylenol, Panadol, Datril, Anacin 3, Tempra, and Liquiprin. Acetaminophen can be repeated every four hours. The following are [facility] recommended dosages: >89 pounds or adults 650 mg to 900 mg Acetaminophen can be repeated every four hours. Maximum dose not to exceed 4000 mg a day. ANTINAUSEA MEDICATION: You have been given a medication to suppress nausea and vomiting. This type of medication can be given as a shot, pill, or suppository. It will usually last for many hours. Pills and shots usually last six to eight hours, suppositories last about 12 hours. For the typical illness, only one or two doses of the medication may be necessary. Mild lightheadedness may occur. This type of medicine can cause drowsiness. Do not drive or operate dangerous machinery while under its influence. Do not mix with alcohol. See your doctor at once if you have muscle spasms or tightness, or uncontrollable motions (particularly of the neck, mouth, or jaw). Persistent vomiting or severe lightheadedness should also be evaluated by the physician. FOLLOW-UP CARE: If you have been referred to a physician for follow-up care, call the physicians office for an appointment as you were instructed or within the next two days. If you experience worsening or a significant change in your symptoms, notify the physician immediately or return to the Emergency Department at any time for re-evaluation. Prescriptions: Ondansetron [Zofran Odt 4 mg Tablet] 1 tab PO Q6H #15 tab.rapdis Forms: Elevated Blood Pressure Referrals: TOBY PARKER NP [Primary Care Provider] - Follow up in 3-5 days
[2020-07-20 21:48] VITALS: BP 147/58
[2020-07-20] MEDS ORDERED: CETIRIZINE 10 MG TABLET PO ONE (21:49)
== END 2020-07-20 22:27 | disposition home or self-care (01) ==
LOC: ER 13:32
DX: R42 Dizziness and giddiness (principal); J06.9 Acute upper respiratory infection, unspecified; B97.89 Other viral agents as the cause of diseases classified elsewhere; R11.0 Nausea; R09.81 Nasal congestion; L30.9 Dermatitis, unspecified
CPT/HCPCS: 93005; 99285; 36415; 83735; 85025; 80053; 84484; 71045; 93010; A9270 ×3; S0119